=== PATIENT | male | born 1980 | race Caucasian/White ===

== ENCOUNTER 2025-04-25 10:00 | Inpatient (IN) | payer OTHER, SELFPAY ==
[2025-04-25] VITALS (28 sets, daily range): BP systolic 72–112; BP diastolic 35–75; PULSE 69–140; RESP 16–32; TEMP 36.7–39.4; O2SAT 96–100; BMI 21.6
--- NOTE | ~2025-04-25 | XR_ITS ---
Examination: XR chest 1V portable Clinical History: Pneumonia/consolidation on the left side Comparison: 04/25/2025 Technique: Portable AP Findings: Right neck central line. Heart size normal. Persistent airspace disease left lung. Developing airspace disease right lung base No sizable effusion or pneumothorax. No acute bony abnormality. IMPRESSION: 1. Persistent left and developing right pneumonia. Reviewed, dictated and finalized at location R.
--- NOTE | ~2025-04-25 | XR_ITS ---
EXAMINATION: XR chest 2V, 04/30/2025 15:47 CDT HISTORY: PNA, flank pain COMPARISON: No comparisons available. Technique: 2 views obtained. Findings: Bilateral infiltrates and small effusions. Left upper lobe infiltrate. COPD changes. No pneumothorax. Heart is normal size. Mediastinal and hilar contours are within normal limits. Bony thorax no acute abnormality. Impression: Bilateral pneumonia Reviewed, dictated and finalized at location P. Impression: Bilateral pneumonia
--- NOTE | ~2025-04-25 | XR_ITS ---
EXAMINATION: XR chest 2V, 04/25/2025 12:15 CDT HISTORY: Cough, FEVER, WEAKNESS COMPARISON: No comparisons available. Technique: 2 views obtained. Findings: Large left upper and lower lobe infiltrates. No pneumothorax. Heart is normal size. Mediastinal and hilar contours are within normal limits. Bony thorax no acute abnormality. Impression: Left-sided pneumonia Reviewed, dictated and finalized at location P. Impression: Left-sided pneumonia
--- NOTE | ~2025-04-25 | XR_ITS ---
Clinical history:Central line placement EXAM:X-ray chest Port-A-Cath/central TECHNIQUE:A single frontal AP upright portable image of the chest was obtained. Comparisons:Chest x-ray 2024 FINDINGS: There is a right-sided central venous catheter with its tip projecting over the right atrium. No pneumothorax. No pleural effusion. No free air under the diaphragm. Moderate-sized patchy opacities scattered throughout the left lung similar to the study from 04/25/2025 at 12:22 PM IMPRESSION: 1. Right-sided central venous catheters is tip projecting over the right atrium. 2. Moderate-sized patchy opacities scattered throughout the left lung similar to the study from 04/25/2025 at 12:22 PM. Reviewed, dictated and finalized at location Q. IMPRESSION: 1. Right-sided central venous catheters is tip projecting over the right atrium . 2. Moderate-sized patchy opacities scattered throughout the left lung similar t o the study from 04/25/2025 at 12:22 PM.
--- NOTE | ~2025-04-25 | CT_ITS ---
EXAMINATION: CT diagnostic chest wo flaquito, 04/25/2025 14:15 CDT HISTORY: pneumonia, septick shock COMPARISON: No comparisons available. TECHNIQUE: CT scan of the chest was performed without IV contrast. One or more of the following dose reduction techniques were used: automated exposure control, adjustment of the mA and/or kV according to patient size, use of iterative reconstruction technique. FINDINGS: No significant coronary calcification is present ([id number]) LUNGS: Clear without consolidation, effusion, or pneumothorax. HEART AND PERICARDIUM: Within normal limits. AORTA: Normal caliber aorta. ADENOPATHY/MEDIASTINUM: None. LIMITED VIEWS OF THE ABDOMEN: Within normal limits. OSSEOUS STRUCTURES: No acute osseous abnormality.No suspicious lesions. OVERLYING SOFT TISSUES: Unremarkable. THYROID: The thyroid is unremarkable. IMPRESSION: 1. No etiology identified to explain the patient's symptoms. Follow up suggested if symptoms persist. Reviewed, dictated and finalized at location P. IMPRESSION: 1. No etiology identified to explain the patient's symptoms. Follow up suggeste d if symptoms persist.
[2025-04-25] MEDS: SODIUM CHLORIDE 0.9% IV 1,000 ML 999 ML IV CONT ×3 (11:37→12:37)
[2025-04-25] MEDS: ACETAMINOPHEN 500 MG TABLET 1000 MG PO (11:37)
[2025-04-25] MEDS: SODIUM CHLORIDE 0.9% IV 100 ML 999 ML IV CONT (11:38)
[2025-04-25 11:39] LABS: Hematocrit 39.6 % (42.0-52.0); Hemoglobin 12.7 g/dL (14.0-18.0); Immature Granulocyte Percent A 4.5 % (0-0.5); Lymphocytes Absolute Auto 0.55 K/mm3 (0.9-3.2); Mean Corpuscular HGB Conc 32.1 g/dl (32-36); Mean Corpuscular Hemoglobin 26.7 pg (26-34); Mean Corpuscular Volume 83.4 fl (80-100); Nucleated Red Blood Cells Absolute Auto 0.000 K/mm3 (0.0-0.012); Nucleated Red Blood Cells Perc 0.0 % (0.0-0.2); Platelet Count Result 222 k/mm3 (150-375); Red Blood Count 4.75 M/mm3 (4.6-6.20); White Blood Count 11.3 K/mm3 (4.5-10.0)
[2025-04-25 11:49] LABS: INR 1.2; Partial Thromboplastin Time 34.4 Seconds (22.3-36.8); Prothrombin Time 14.9 Seconds (11.1-14.7)
[2025-04-25 11:52] LABS: Alanine Aminotransferase 26 U/L (6-50); Albumin Level 3.6 g/dL (3.5-5.1); Alkaline Phosphatase 99 U/L (38-126); Anion Gap 9 mmol/L (4-12); Aspartate Amino Transferase 20 U/L (17-59); Bilirubin,Total 0.7 mg/dL (0.2-1.3); Blood Urea Nitrogen 17 mg/dL (9-20); Calcium 8.3 mg/dL (8.4-10.2); Carbon Dioxide 28 mmol/L (22-30); Chloride 94 mmol/L (98-107); Estimated CRCL calculation 96 ml/min; Estimated Glomerular Filt Rate > 60; Glucose 122 mg/dL (65-110); Potassium 3.8 mmol/L (3.4-5.0); Sodium 131 mmol/L (137-145); Total Protein 7.4 g/dL (6.3-8.2)
--- NOTE | 2025-04-25 12:03 | ED.GENADULT ---
HPI - General Adult General Chief complaint: Fever Stated complaint: cough, fever, SOB Time Seen by Provider: 04/25/25 11:17 History of Present Illness HPI narrative: Patient is a 44-year-old male who presents ER with cough and fever. Ongoing over last 5 days. Has been trying to drink but is not having much urine output. No chest pain. He does have history of smoking. Febrile up to 102.8? F here. He is getting dizzy when he sits up. He feels extreme weakness and fatigue. No known sick contacts. Related Data Home Medications ?Medication ?Instructions ?Recorded ?Confirmed ?Last Taken ?Type No Home Medications 04/25/25 04/25/25 Unknown History Allergies Allergy/AdvReac Type Severity Reaction Status Date / Time aspirin Allergy Unknown Unknown Verified 04/25/25 14:58 Review of Systems Review of Systems: All systems reviewed & are unremarkable except as noted in HPI and below Constitutional: Constitutional: Reports no additional constitutional complaints Cardiovascular: Cardiovascular: Reports no additional cardiovascular complaints Respiratory: Respiratory: Reports no additional respiratory complaints Gastrointestinal: Gastrointestinal: Reports no additional gastrointestinal complaints Integumentary/Breasts: Skin/Breast: Reports system reviewed and no additional complaints, except as docu PMFSH Past Medical History Medical History (Updated 04/25/25 @ 18:53 by Conner Garcia MD) Depression with anxiety Family History Family History (Updated 09/10/16 @ 08:10 by DOCTOR UNKNOWN) Grandparent Family history of lung cancer, Onset Age: 53 Mother Family history of renal failure, Onset Age: 42 Social History Social History (Updated 04/25/25 @ 14:11 by Lazaro Campbell MD) Social History: Smokes 1 pack per 2 days, denies any alcohol use, denies marijuana but admits to IV drug abuse and uses IV meth. Denies cocaine or current fentanyl use although he has used fentanyl the past Smoking packs per day: 1 Smoking cigarettes per day: 20.0 Smoking status: Current every day smoker Second hand tobacco smoke exposure: No Alcohol intake: never Substance use type: methamphetamine Lack of Transportation: No Lack of Food: Sometimes True Current Housing: I Do Not Have Housing Concerned About Future Housing: YES Difficulty Paying Gas/Electric Bills: Decline to Answer Difficulty Paying for Meds: Decline to Answer Currently Unemployed: Decline to Answer Education: Decline to Answer Difficulty w/ Childcare or Family Care: Decline to Answer Spiritual care concerns: No Exam Narrative: GENERAL: Ill-appearing, thin, and in no acute distress. HEAD: Normocephalic, atraumatic. ENT: Mucous membranes moist. CHEST: Clear to auscultation. No respiratory distress. HEART: Tachycardic and regular.. Normal peripheral pulses. ABDOMEN: Soft, nontender, nondistended. EXTREMITIES: Normal range of motion. No edema. SKIN: Warm, dry, no rash. NEURO: Alert and oriented x3. PSYCH: Normal mood and affect. Course Course Emergency Course: Patient informed of results. He does acknowledge that he is an IV drug user. His blood pressure is trending down into the 70s. He consents to central line placement. Patient accepted to the ICU. He has been placed on ceftriaxone/azithromycin/vancomycin. Vital Signs Vital signs: Vital Signs Temperature 98.9 F 04/25/25 10:08 Pulse Rate 140 H 04/25/25 10:08 Respiratory Rate 24 H 04/25/25 10:08 Blood Pressure 102/67 04/25/25 10:08 Pulse Oximetry 100 04/25/25 10:08 Oxygen Delivery Room Air 04/25/25 10:08 Temperature 101.9 F H 04/25/25 18:00 Pulse Rate 110 H 04/25/25 18:25 Respiratory Rate 32 H 04/25/25 18:00 Blood Pressure 107/70 04/25/25 18:25 Pulse Oximetry 97 04/25/25 18:00 Oxygen Delivery Room Air 04/25/25 16:00 Procedures Central Line Placement Right IJ: Central Line Date: 04/25/25 Central Line Time: 13:41 Discussed w/ the patient/family/POA,the placement of a central venous catheter, including its clinical necessity/indication & associated potential risks, benifits and alternatives.: Yes The patient/family/POA understand(s) and acknowledge(s) the need to proceed with central venous catheter insertion as an important element of the patient's clinical management.: Yes Time Out Performed: Yes Patient Placed on Monitor/Pulse Ox: Yes Max. Sterile Barrier Technique: Caps, large sterile sheet and hand hygiene Central Line Prep: 2% chlorhexidine scrub and sterile drapes applied Technique: US-Guided Local Anesthetic: lidocaine 1% Amount of anesthesia used (mL): 3 Ultrasound Used for Placement: Yes Central Line Lumen Inserted: triple Post Procedure: sutured in place, good blood return, all ports aspirated, flushed, capped and sterile dressing applied Post Procedure X-Ray: tip of catheter in good position and no pneumothorax seen Patient Tolerated Procedure: well and no complications Complications: none Medical Decision Making Vital Signs Vital Signs: Vital Signs Temperature 98.9 F 04/25/25 10:08 Pulse Rate 140 H 04/25/25 10:08 Respiratory Rate 24 H 04/25/25 10:08 Blood Pressure 102/67 04/25/25 10:08 Pulse Oximetry 100 04/25/25 10:08 Oxygen Delivery Room Air 04/25/25 10:08 Temperature 101.9 F H 04/25/25 18:00 Pulse Rate 110 H 04/25/25 18:25 Respiratory Rate 32 H 04/25/25 18:00 Blood Pressure 107/70 04/25/25 18:25 Pulse Oximetry 97 04/25/25 18:00 Oxygen Delivery Room Air 04/25/25 16:00 Lab Data 04/25/25 18:18 04/25/25 18:18 Labs: Lab Results 04/25/25 04/25/25 Range/Units 11:29 11:42 WBC 11.3 H (4.5-10.0) K/mm3 RBC 4.75 (4.6-6.20) M/mm3 Hgb 12.7 L (14.0-18.0) g/dL Hct 39.6 L (42.0-52.0) % MCV 83.4 (80-100) fl MCH 26.7 (26-34) pg MCHC 32.1 (32-36) g/dl RDW 14.2 (11.5-14.5) % Plt Count 222 (150-375) k/mm3 MPV 9.6 (7.4-10.4) fl Immature Gran % (Auto) 4.5 H (0-0.5) % Neut % (Auto) 81.3 H (45.5-73.1) % Lymph % (Auto) 4.9 L (18.3-44.2) % Gates % (Auto) 8.4 (2.6-8.5) % Eos % (Auto) 0.1 (0-4.4) % Baso % (Auto) 0.8 (0.2-1.2) % Lymph # (Auto) 0.55 L (0.9-3.2) K/mm3 [place] # (Auto) 1.0 H (0.1-0.6) K/mm3 Eos # (Auto) 0.0 (0-0.3) K/mm3 Baso # (Auto) 0.1 (0.0-0.1) K/mm3 Abs Immat Gran (auto) 0.51 H (0.00-0.031) K/mm3 Absolute Neuts (auto) 9.2 H (1.3-6.7) K/mm3 Absolute Nucleated RBC 0.000 (0.0-0.012) K/mm3 Nucleated RBC % 0.0 (0.0-0.2) % PT 14.9 H (11.1-14.7) Seconds INR 1.2 APTT 34.4 (22.3-36.8) Seconds Sodium 131 L (137-145) mmol/L Potassium 3.8 (3.4-5.0) mmol/L Chloride 94 L (98-107) mmol/L Carbon Dioxide 28 (22-30) mmol/L Anion Gap 9 (4-12) mmol/L BUN 17 (9-20) mg/dL Creatinine 0.81 (0.7-1.3) mg/dL Estim Creat Clear Calc 96 ml/min Estimated GFR > 60 (59 - ) Glucose 122 H (65-110) mg/dL Lactic Acid 2.3 H (0.7-2.0) mmol/L Calcium 8.3 L (8.4-10.2) mg/dL Total Bilirubin 0.7 (0.2-1.3) mg/dL AST 20 (17-59) U/L ALT 26 (6-50) U/L Alkaline Phosphatase 99 (38-126) U/L C-Reactive Protein 30.0 H (<1.0) mg/dL Total Protein 7.4 (6.3-8.2) g/dL Albumin 3.6 (3.5-5.1) g/dL Urine Color Dark yellow (Yellow) Urine Appearance Cloudy H (Clear) Urine pH 5.5 (5.0-9.0) Ur Specific [place] 1.022 (1.001-1.035) Urine Protein 2+ H (Negative) mg/dL Urine Glucose (UA) Negative (Negative) mg/dL Urine Ketones Negative (Negative) mg/dL Ur Blood (Man) Negative (Negative) Urine Nitrate Negative (Negative) Urine Bilirubin Negative (Negative) Urine Urobilinogen 1.0 (<2.0) mg/dL Add Ur Microanalysis Reviewed Leukocyte Esterase Rfl Negative (Negative) SHANTEL/UL Urine RBC 0-2 (0-2) /hpf Urine WBC 0-5 (0-3) /hpf Ur Squamous Epith Cells Few (Few) /hpf Urine Bacteria None seen /hpf Urine Casts 6-10 Urine Opiates Screen Negative (Negative) Urine Methadone Screen Negative (Negative) Ur Barbiturates Screen Negative (Negative) Ur Phencyclidine Scrn Negative (Negative) Ur Amphetamine Screen Positive A (Negative) U Benzodiazepines Scrn Negative (Negative) Urine Cocaine Screen Negative (Negative) U Cannabinoids Screen Positive A (Negative) Influenza A (RT-PCR) Negative (Negative) Influenza B (RT-PCR) Negative (Negative) RSV (RT-PCR) Negative (Negative) SARS-CoV-2 RNA (RT-PCR) Negative (Negative) Critical Care Time Critical Care Time Critical Care Time: Yes Total Critical Care Time: 40 Discharge Plan Discharge Clinical Impression: Septic shock, Community acquired pneumonia, IV drug user Patient Disposition: Still a Patient Condition: Serious
[2025-04-25 12:09] LABS: Add Urine Microscopic? YES; Appearance Urine Cloudy (Clear); Glucose Urine UA Negative (Negative); Leukocyte Esterase Ur Negative LEU/UL (Negative); Need Manual Microscopic Reviewed; Nitrate Urine Negative (Negative); Specific Grav Ur 1.022 (1.001-1.035)
[2025-04-25 12:14] LABS: Influenza A QL RT-PCR Negative (Negative); Influenza B QL RT-PCR Negative (Negative); RSV RNA, RT-PCR Negative (Negative); SARS-CoV-2 RNA PCR Negative (Negative)
[2025-04-25 12:22] LABS: CRP 30.0 mg/dL (<1.0)
[2025-04-25] MEDS: cefTRIAXone 1 GM in SODIUM CHLORIDE 0.9% IV 50 ML 100 ML IVPB (12:37)
[2025-04-25] MEDS: AZITHROMYCIN IV 500 MG in SODIUM CHLORIDE 0.9% IV 250 ML IVPB (12:57)
--- NOTE | 2025-04-25 13:53 | WPDCNINT ---
Assessment and Plan Assessment and plan (1) Septic shock: Code(s): A41.9 - Sepsis, unspecified organism; R65.21 - Severe sepsis with septic shock Status: Acute Assessment and Plan: Septic shock secondary to community-acquired pneumonia in a person with IV drug use Admission to ICU IVF bolus followed by infusion Levophed infusion to maintain mean arterial pressure Blood cultures, sputum culture, mycoplasma IgM, urine pneumococcal antigen, urine Legionella antigen Empiric Rocephin azithromycin and vancomycin Check HIV and hepatitis screen Check CT chest without contrast If cultures remain positive will order additional workup including echocardiogram (2) Community acquired pneumonia: Code(s): J18.9 - Pneumonia, unspecified organism Status: Acute (3) IV drug user: Code(s): F19.90 - Other psychoactive substance use, unspecified, uncomplicated Status: Acute Assessment and Plan: See above Check urine drug screen Patient was counseled and encouraged to quit drug use Plan DVT prophylaxis -Lovenox Nutrition -diet ordered Code Status -patient wishes to be Full Code. He is and does not have any biological children. He request that his friend Aline be considered healthcare [employer] if he is unable to make decisions on his behalf. Case discussed with ED physician Dr. Garcia Total Critical Care Time - 35 minutes Due to a high probability of clinically significant, life threatening deterioration, the patient required my highest level of preparedness to intervene emergently and I personally spent this critical care time directly and personally managing the patient. This critical care time included obtaining a history; examining the patient; pulse oximetry; ordering and review of studies; arranging urgent treatment with development of a management plan; evaluation of patient's response to treatment; frequent reassessment; and discussions with other providers. It was exclusive of separately billable procedures and treating other patients and teaching time. 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 He also complained of feeling dizzy and lightheaded. He also complained of feeling f weak and fatigue. Complaint of chest pain on the left side with deep breathing and coughing. Denied any sick contacts. Denies any shortness of breath or loss of consciousness. Patient denies nausea vomiting, abdominal pain, diarrhea, headache or constipation. No hematuria or dysuria or frequency. All other systems were reviewed and were negative. He admits to IV drug use In ER patient was found to be febrile and and hypotensive Workup in the ER showed UA to be not suggestive UTI A viral PCR was negative Electrolytes were unremarkable except lactic acid elevated at 2.3 and CRP 30 WBC elevated at 11.3 Chest x-ray showed left sided pneumonia In ER patient was given IV fluid bolus 30 mL/kg despite the patient was hypotensive. Patient was started on vasopressor and a right IJ central venous catheter was placed. Review of Systems Review of Systems: All systems reviewed & are unremarkable except as noted in HPI and below (HPI) [facility] Past Medical History Medical History (Updated 04/25/25 @ 13:54 by Lazaro Campbell MD) Depression with anxiety Family History Family History (Updated 09/10/16 @ 08:10 by DOCTOR UNKNOWN) Grandparent Family history of lung cancer, Onset Age: 53 Mother Family history of renal failure, Onset Age: 42 Social History Social History (Updated 04/25/25 @ 14:11 by Lazaro Campbell MD) Social History: Smokes 1 pack per 2 days, denies any alcohol use, denies marijuana but admits to IV drug abuse and uses IV meth. Denies cocaine or current fentanyl use although he has used fentanyl the past Smoking status: Heavy tobacco smoker Second hand tobacco smoke exposure: No Alcohol intake: current Meds Home Medications and Allergies Home Medications ?Medication ?Instructions ?Recorded ?Confirmed ?Type No Home Medications 04/25/25 04/25/25 History Allergies Allergy/AdvReac Type Severity Reaction Status Date / Time aspirin Allergy Unknown Unknown Verified 04/25/25 10:12 Vital Signs Vital Signs - 24 hr 04/25/25 10:08 04/25/25 11:00 04/25/25 11:16 Temperature 37.2 C 39.3 C H Pulse Rate 140 H 124 H 116 H Respiratory Rate 24 H 20 30 H Blood Pressure 102/67 106/75 105/66 Pulse Oximetry 100 100 100 Oxygen Delivery Room Air Room Air 04/25/25 11:17 04/25/25 11:26 04/25/25 12:01 Temperature 39.4 C H Pulse Rate 115 H 108 H Respiratory Rate 30 H 23 H 29 H Blood Pressure 105/66 94/62 L Pulse Oximetry 100 96 99 Oxygen Delivery 04/25/25 12:07 04/25/25 12:28 04/25/25 12:31 Temperature 39.4 C H Pulse Rate 98 103 H Respiratory Rate 21 H 29 H Blood Pressure 82/57 L 88/55 L Pulse Oximetry 98 99 Oxygen Delivery 04/25/25 12:40 04/25/25 13:04 04/25/25 13:15 Temperature Pulse Rate 109 H 102 H 101 H Respiratory Rate 23 H 26 H 17 Blood Pressure 92/61 L 77/40 L 95/55 L Pulse Oximetry 100 98 98 Oxygen Delivery Exam Narrative: General: Frail male who appears sick and toxic and appears older than his age Lungs/Chest: Trachea central Clear BS B/L, left basilar crackles Cardiac: RRR. Tachycardia Normal S1 S2. No murmurs Circulation: Pedal pulses are intact and symmetrical. Abdomen: Normal bowel sounds.. Soft. NT. ND. Extremities: No clubbing, cyanosis or edema. Warm : De Jesus in place Neurologic: Follows commands. Moves all 4 extremities PERRL AO x3 Skin: No Rash, track pantoja in left antecubital area from IV drug use Results Labs 04/25/25 11:29 04/25/25 11:29 Labs: Impressions Chest X-Ray 04/25/25 12:27 Impression: Left-sided pneumonia Short CBC 04/25/25 Range/Units 11:29 WBC 11.3 H (4.5-10.0) K/mm3 Hgb 12.7 L (14.0-18.0) g/dL Hct 39.6 L (42.0-52.0) % Plt Count 222 (150-375) k/mm3 BMP 04/25/25 11:29 Sodium 131 L Potassium 3.8 Chloride 94 L Carbon Dioxide 28 BUN 17 Creatinine 0.81 Glucose 122 H Calcium 8.3 L Liver Function 04/25/25 Range/Units 11:29 Total Bilirubin 0.7 (0.2-1.3) mg/dL AST 20 (17-59) U/L ALT 26 (6-50) U/L Alkaline Phosphatase 99 (38-126) U/L Albumin 3.6 (3.5-5.1) g/dL Urine 04/25/25 Range/Units 11:42 Urine Color Dark yellow (Yellow) Urine Appearance Cloudy H (Clear) Urine pH 5.5 (5.0-9.0) Ur Specific [place] 1.022 (1.001-1.035) Urine Protein 2+ H (Negative) mg/dL Urine Glucose (UA) Negative (Negative) mg/dL Quality VTE Prophylaxis VTE prophylaxis: pharmacologic ordered Hospitalist MIPS Advance Care Plan I have confirmed that the patient's Advanced Care Plan is present, code status is documented, or surrogate decision maker is listed in patient medical record.: Yes Medication Reconciliation I have utilized all available resources to obtain, update and review the patients current medications (includes all prescriptions, OTC, herbals, cannabis, and nutritional supplements).: Yes
[2025-04-25] MEDS: NOREPINEPHRINE 8 MG/D5W 250 ML 8 MG/250 ML BAG 9.38 MG IV CONT (14:02)
[2025-04-25] MEDS: CENTRAL LINE FLUSH 10 ML IV PUSH ×2 (14:08→20:17)
[2025-04-25] MEDS: SODIUM CHLORIDE 0.9% IV 1,000 ML 125 ML IV CONT (14:08)
[2025-04-25] MEDS: VANCOMYCIN 1,750 MG/NS 500 ML 1,750 MG/500 ML BAG 250 MG IVPB (14:08)
--- NOTE | 2025-04-25 14:42 | PC.NURSE ---
This patient, Wyatt Mcclelland, was admitted to Intensive Care Unit-6. Patient/family oriented to hospital policies and general routines including ID bracelet, bed and alarms, visiting hours, pain management, procedures, bathroom and other care routines, personal items, smoking policy, room service/diet, and visiting hours. Information on how to activate the Rapid Response Team has been discussed. Patient/Family are encouraged to report perceived risks to care and to ask questions if they do not understand what they are told or what they should do.
[2025-04-25 14:53] LABS: Cannabinoid Screen Urine Positive (Negative)
[2025-04-25] MEDS: LACTATED RINGERS 1,000 ML 100 ML IV CONT (15:10)
--- NOTE | 2025-04-25 15:11 | P.HP_ITS ---
H&P: HPI History of Present Illness Date/Time: 04/25/25 15:11 Chief Complaint: Fever and cough Narrative: 44-year-old male with past medical history of IV methamphetamine use, current smoker presents to the ED on 04/25/2025 with complaints of 5 day history of cough and fever. The patient has been trying to keep hydrated but has noted decreased urine output. Further endorses feeling of weakness and fatigue. His cough is frequent but nonproductive. Denies chest pain or recent sick contacts. No shortness of breath or loss of consciousness. Denies nausea, vomiting, abdominal pain, diarrhea, headache. Patient states his fever was up to 106? F 3 days prior to arrival. In the ED patient was getting dizzy when sitting up. He does admit to being an IV drug user of methamphetamine. Patient states he st opped using 1 month ago after using for 7 years. Initial vital signs BP 102/67, heart rate 140, respirations 24, temperature 98.9? F, O2 sat 100% on room air Lab significant for leukocytosis, hyponatremia, lactic acid 2.3, CRP 30, UA no signs of infection, UDS positive for amphetamines and cannabinoids. Hepatitis panel negative. Viral panel negative. Chest x-ray reveals left-sided pneumonia. Chest CT shows large left upper lobe bronchial pneumonia with reactive mediastinal lymphadenopathy Patient with continued hypotension while in the ED. central line placed in the right IJ for pressors. Review of Systems Review of Systems: All systems reviewed & are unremarkable except as noted in HPI and below PMFSH Past Medical History Medical History (Updated 04/26/25 @ 01:39 by Rosalba Lim APRN) Depression with anxiety Family History Family History (Updated 09/10/16 @ 08:10 by DOCTOR UNKNOWN) Grandparent Family history of lung cancer, Onset Age: 53 Mother Family history of renal failure, Onset Age: 42 Social History Social History (Updated 04/25/25 @ 14:11 by Lazaro Campbell MD) Social History: Smokes 1 pack per 2 days, denies any alcohol use, denies marijuana but admits to IV drug abuse and uses IV meth. Denies cocaine or current fentanyl use although he has used fentanyl the past Smoking packs per day: 1 Smoking cigarettes per day: 20.0 Smoking status: Current every day smoker Second hand tobacco smoke exposure: No Alcohol intake: never Substance use type: methamphetamine Lack of Transportation: No Lack of Food: Sometimes True Current Housing: I Do Not Have Housing Concerned About Future Housing: YES Difficulty Paying Gas/Electric Bills: Decline to Answer Difficulty Paying for Meds: Decline to Answer Currently Unemployed: Decline to Answer Education: Decline to Answer Difficulty w/ Childcare or Family Care: Decline to Answer Spiritual care concerns: No Meds Home Medications and Allergies Home Medications ?Medication ?Instructions ?Recorded ?Confirmed ?Type No Home Medications 04/25/25 04/25/25 H istory Allergies Allergy/AdvReac Type Severity Reaction Status Date / Time aspirin Allergy Unknown Unknown Verified 04/25/25 14:58 Vital Signs Vital Signs - 24 hr 04/25/25 10:08 04/25/25 11:00 04/25/25 11:16 Temperature 98.9 F 102.8 F H Pulse Rate 140 H 124 H 116 H Respiratory Rate 24 H 20 30 H Blood Pressure 102/67 106/75 105/66 Pulse Oximetry 100 100 100 Oxygen Delivery Room Air Room Air 04/25/25 11:17 04/25/25 11:26 04/25/25 12:01 Temperature 102.9 F H Pulse Rate 115 H 108 H Respiratory Rate 30 H 23 H 29 H Blood Pressure 105/66 94/62 L Pulse Oximetry 100 96 99 Oxygen Delivery 04/25/25 12:07 04/25/25 12:28 04/25/25 12:31 Temperature 102.9 F H Pulse Rate 98 103 H Respiratory Rate 21 H 29 H Blood Pressure 82/57 L 88/55 L Pulse Oximetry 98 99 Oxygen Delivery 04/25/25 12:40 04/25/25 13:04 04/25/25 13:15 Temperature Pulse Rate 109 H 102 H 101 H Respiratory Rate 23 H 26 H 17 Blood Pressure 92/61 L 77/40 L 95/55 L Pulse Oximetry 100 98 98 Oxygen Delivery 04/25/25 13:20 04/25/25 13:41 04/25/25 14:01 Temperature Pulse Rate 104 H 103 H 97 Respiratory Rate 21 H 18 21 H Blood Pressure 95/55 L 85/53 L 93/61 L Pulse Oximetry 100 98 98 Oxygen Delivery 04/25/25 14:02 04/25/25 14:35 04/25/25 15:00 Temperature 98.9 F 98.5 F Pulse Rate 90 91 85 Respiratory Rate 23 H 26 H Blood Pressure 93/61 L 101/75 91/63 L Pulse Oximetry 98 97 Oxygen Delivery Exam Narrative: GENERAL: toxic appearing, frail. HEAD: Normocephalic, atraumatic. EYES: PERRLA. Conjunctivae clear. NOSE: Normal no drainage. THROAT: Pharynx clear, no exudate. NECK: Trachea midline. No adenopathy, no masses. RESPIRATORY: Airway patent, respirations nonlabored. Left sided crackles CARDIOVASCULAR: Regular rate and rhythm . GASTROINTESTINAL: Abdomen is soft and nontender. No organomegaly. Bowel sounds normal in all quadrants. GENITOURINARY: Defer MUSCULOSKELETAL: Moves all extremities. No gross deformities. No calf tenderness. SKIN: Warm, dry, normal color. Track pantoja noted to left AC NEURO: A&O X4. Speech clear. Drowsy PSYCHIATRIC: Normal interaction H&P: Results Labs Labs: Short CBC 04/25/25 Range/Units 11:29 WBC 11.3 H (4.5-10.0) K/mm3 Hgb 12.7 L (14.0-18.0) g/dL Hct 39.6 L (42.0-52.0) % Plt Count 222 (150-375) k/mm3 BMP 04/25/25 11:29 Sodium 131 L Potassium 3.8 Chloride 94 L Carbon Dioxide 28 BUN 17 Creatinine 0.81 Glucose 122 H Calcium 8.3 L Liver Function 04/25/25 Range/Units 11:29 Total Bilirubin 0.7 (0.2-1.3) mg/dL AST 20 (17-59) U/L ALT 26 (6-50) U/L Alkaline Phosphatase 99 (38-126) U/L Albumin 3.6 (3.5-5.1) g/dL Urine 04/25/25 Range/Units 11:42 Urine Color Dark yellow (Yellow) Urine Appearance Cloudy H (Clear) Urine pH 5.5 (5.0-9.0) Ur Specific [place] 1.022 (1.001-1.035) Urine Protein 2+ H (Negative) mg/dL Urine Glucose (UA) Negative (Negative) mg/dL Assessment and Plan Assessment and plan (1) Septic shock: Code(s): A41.9 - Sepsis, unspecified organism; R65.21 - Severe sepsis with septic shock Status: Acute Assessment and Plan: Presents with cough and fever x5 days. Chest x-ray with left-sided pneumonia. Chest CT shows large left upper lobe bronchial pneumonia with reactive mediastinal lymphadenopathy - meets SIRS criteria: Heart rate greater than 90, respirations greater than 20, WBC greater than 12 -community-acquired pneumonia - lactic acid: 2.3--> 1.3 -3 L bolus -LR at 100 mL/hour - suspected source: Left upper lobe pneumonia - started on azithromycin, ceftriaxone, vancomycin - blood cultures drawn on 04/25 - UA: No signs of infection -trend CBC, CMP, Lactate, INR -requiring pressor support of norepinephrine due to ongoing hypotension despite fluid resuscitation -sputum culture, mycoplasma IgM, urine pneumococcal antigen Legionella pending -acetaminophen p.r.n. -guaifenesin Q 12 (2) IV drug user: Code(s): F19.90 - Other psychoactive substance use, unspecified, uncomplicated Status: Acute Assessment and Plan: IV drug user for about 7 years. Patient states he used methamphetamine IV but quit about 1 month ago. UDS positive for methamphetamines and cannabinoids. Co unseling and encouragement provided. -hepatitis screen negative -check HIV Plan Diet: Regular GI prophylaxis: Protonix DVT prophylaxis: Lovenox lines/drains: Central line to right IJ Fluids: 3 L bolus given-LR at 100 mL per hour Code status: Full Quality VTE Prophylaxis VTE prophylaxis: pharmacologic ordered Hospitalist [facility] Advance Care Plan I have confirmed that the patient's Advanced Care Plan is present, code status is documented, or surrogate decision maker is listed in patient medical record.: Yes Medication Reconciliation I have utilized all available resources to obtain, update and review the patients current medications (includes all prescriptions, OTC, herbals, cannabis, and nutritional supplements).: Yes
[2025-04-25 15:36] LABS: Hepatitis B Surface Antigen Negative (Negative)
[2025-04-25 15:41] LABS: HAV RESULT Negative (Negative); HIV 1/2 Ab P24 Ag Result Negative (Negative); Hepatitis B Core IgM Result Negative (Negative)
[2025-04-25 15:59] LABS: MRSA (PCR) NOT DETECTED (NOT DETECTE)
[2025-04-25] MEDS: guaiFENesin 600 MG/DEXTROMETHORPHAN 30 MG SR TAB 12 HR 1 TAB PO (17:24)
[2025-04-25] MEDS: ACETAMINOPHEN 325 MG TABLET 650 MG PO (17:24)
[2025-04-25] MEDS: BENZOCAINE/MENTHOL (*BKC) 18 EA LOZENGE 1 LOZENGE PO ×2 (18:00→20:34)
[2025-04-25 18:28] LABS: Hematocrit 33.1 % (42.0-52.0); Hemoglobin 10.7 g/dL (14.0-18.0); Immature Granulocyte Percent A 5.0 % (0-0.5); Lymphocytes Absolute Auto 0.92 K/mm3 (0.9-3.2); Mean Corpuscular HGB Conc 32.3 g/dl (32-36); Mean Corpuscular Hemoglobin 26.8 pg (26-34); Mean Corpuscular Volume 82.8 fl (80-100); Nucleated Red Blood Cells Absolute Auto 0.000 K/mm3 (0.0-0.012); Nucleated Red Blood Cells Perc 0.0 % (0.0-0.2); Platelet Count Result 158 k/mm3 (150-375); Red Blood Count 4.00 M/mm3 (4.6-6.20); White Blood Count 12.8 K/mm3 (4.5-10.0)
[2025-04-25 18:43] LABS: Alanine Aminotransferase 22 U/L (6-50); Albumin Level 2.7 g/dL (3.5-5.1); Alkaline Phosphatase 81 U/L (38-126); Anion Gap 4 mmol/L (4-12); Aspartate Amino Transferase 18 U/L (17-59); Bilirubin,Total 0.2 mg/dL (0.2-1.3); Blood Urea Nitrogen 15 mg/dL (9-20); Calcium 7.3 mg/dL (8.4-10.2); Carbon Dioxide 24 mmol/L (22-30); Chloride 105 mmol/L (98-107); Estimated CRCL calculation 119 ml/min; Estimated Glomerular Filt Rate > 60; Glucose 128 mg/dL (65-110); Magnesium 1.8 mg/dL (1.6-2.3); Potassium 3.9 mmol/L (3.4-5.0); Sodium 133 mmol/L (137-145); Total Protein 5.7 g/dL (6.3-8.2)
[2025-04-25] MEDS: HYDROcodone/acetaminophen (*CRX) 5-325 MG TABLET 1 TAB PO (20:37)
[2025-04-26] VITALS (33 sets, daily range): BP systolic 73–135; BP diastolic 51–92; PULSE 51–101; RESP 15–31; TEMP 36.5–37.7; O2SAT 94–100
--- NOTE | 2025-04-26 | ECHO_ITS ---
Patient Info Name: Wyatt Mcclelland Age: 44 years : 1980 Gender: Male Ht: 70 in Wt: 157 lbs BSA: 1.88 m2 BP: 106 / 78 mmHg Technical Quality: Good Exam Date: 04/26/2025 11:06 AM Patient Status: I Admit Date: 04/26/2025 Exam Type: CA echo doppler color flow Complete two-dimensional, color flow and Doppler transthoracic echocardiogram is performed. Staff Referring Physician: Rosalba Lim Academic Advising Director: Venkata Sánchez III Attending Provider: Amarilys Godwin Summary 1. Patient stated he wanted tech to inform doctors that patient was IV drug user. 2. Complete two-dimensional, color flow and Doppler transthoracic echocardiogram is performed. 3. Normal LV size and wall thickness. Normal LV systolic and diastolic function, ejection fraction about 60-65%. Normal RV size and systolic function. Mild biatrial enlargement. No significant valvular abnormality. Left Ventricle Left ventricular chamber dimension is normal. Left ventricular systolic function is normal, estimated at 60-65. The left ventricular diastolic function is normal. Right Ventricle Right ventricular chamber dimension is normal. Right ventricular systolic function is normal. Left Atria Left atrial chamber dimension is mildly enlarged. Right Atria Right atrial chamber dimension is mildly enlarged. Aortic Valve The aortic valve is normal. There is no aortic valve stenosis. Pulmonic Valve The pulmonic valve is normal. Mitral Valve The mitral valve has normal leaflets. There is trace mitral valve regurgitation. Tricuspid Valve The tricuspid valve leaflets are normal. There is trace tricuspid valve regurgitation. Pericardium/Pleural The pericardium appears normal. Inferior Vena Cava Dilated inferior vena cava with <50% collapse upon inspiration consistent with elevated right atrial pressure, 10 mmHg. Aorta The aortic root size at the sinus of Valsalva is normal. Left Ventricular Outflow Tract Name Value Normal LVOT 2D LVOT Diameter 2.4 cm LVOT Doppler LVOT Peak Velocity 101 cm/s LVOT Peak Gradient 4 mmHg LVOT Mean Gradient 2 mmHg LVOT VTI 20 cm LVOT VTI/AV VTI Ratio 0.9 LVOT Stroke Volume 92 ml LVOT CO 5.8 l/min LVOT CI 3.1 l/min/m2 Pulmonic Valve Name Value Normal PV Doppler PV Peak Velocity 76 cm/s PV Peak Gradient 2 mmHg PV Mean Gradient 1 mmHg Mitral Valve Name Value Normal MV Doppler MV Peak Gradient 4 mmHg MV Mean Gradient 1 mmHg MV Area (Cont Eq VTI) 3.7 cm2 MV Diastolic Function MV E Peak Velocity 107 cm/s MV A Peak Velocity 63 cm/s MV E/A 1.7 MV Decel Time (PW) 186 ms MV Annular TDI MV E/e' (Septal) 8.2 MV E/e' (Lateral) 7.3 MV E/e' (Average) 7.7 Tricuspid Valve Name Value Normal TV Regurgitation Doppler TR Peak Velocity 227 cm/s TR Peak Gradient 21 mmHg Estimated PAP/RSVP RA Pressure 10 mmHg <=5 PA Systolic Pressure 31 mmHg <36 RV Systolic Pressure 31 mmHg <36 TV Annular TDI TV Lateral Tracy s' Velocity 13.6 cm/s >=9.5 Aortic Valve Name Value Normal AV Doppler AV Peak Velocity 119 cm/s AV Peak Gradient 6 mmHg AV Mean Gradient 3 mmHg AV VTI 23 cm AV Area (Cont Eq VTI) 4.1 cm2 >=3.0 AV Area (Cont Eq Rashaun) 3.9 cm2 AV DI (Rashaun) 0.85 AV Regurgitation 2D LVOT Area 4.6 cm2 Ventricles Name Value Normal LV Dimensions 2D/MM IVS Diastolic Thickness (2D) 0.8 cm 0.6-1.0 LVID Diastole (2D) 4.6 cm 4.2-5.8 LVIW Diastolic Thickness (2D) 0.9 cm 0.6-1.0 LVID Systole (2D) 3.1 cm 2.5-4.0 LVOT Diameter 2.4 cm LV Mass (2D Cubed) 132.21 g 88.00-224.00 LV Mass Index (2D Cubed) 70 g/m2 49-115 Relative Wall Thickness (2D) 0.41 <=0.42 LV Fractional Shortening/Ejection Fraction 2D/MM LV Fractional Shortening (2D) 32 % 25-43 LV EF (2D Teichholz) 61 % LV Diastolic Volume (4C MOD) 89 ml LV EF (4C MOD) 61 % LV Diastolic Volume (2C MOD) 109 ml LV EF (2C MOD) 65 % LV Diastolic Volume (BP MOD) 100 ml 62-150 LV Diastolic Volume Index (BP MOD) 53 ml/m2 34-74 LV Systolic Volume (BP MOD) 37 ml 21-61 LV Systolic Volume Index (BP MOD) 20 ml/m2 11-31 LV EF (BP MOD) 63 % 52-72 LV Diastolic Length (4C) 7.6 cm LV Systolic Length (4C) 6.1 cm LV Stroke Volume (4C MOD) 54 ml Atria Name Value Normal LA Dimensions LA Volume (4C A-L) 64 ml LA Volume (BP A-L) 64 ml RA Dimensions RA Systolic Major Surprise Length (4C) 5.8 cm 2.1-2.7 RA Area (4C) 21.4 cm2 <=18.0 Report Signatures
[2025-04-26] MEDS: LACTATED RINGERS 1,000 ML 100 ML IV CONT ×3 (00:24→20:42)
[2025-04-26] MEDS: HYDROcodone/acetaminophen (*CRX) 5-325 MG TABLET 1 TAB PO ×4 (01:06→20:18)
[2025-04-26] MEDS: VANCOMYCIN 1,250 MG/NS 250 ML 1,250 MG/250 ML BAG 166.67 MG IVPB ×2 (01:13→14:04)
[2025-04-26] MEDS: CENTRAL LINE FLUSH 10 ML IV PUSH ×3 (05:54→20:19)
[2025-04-26 05:57] LABS: Hematocrit 32.4 % (42.0-52.0); Hemoglobin 10.4 g/dL (14.0-18.0); Immature Granulocyte Percent A 7.9 % (0-0.5); Lymphocytes Absolute Auto 1.66 K/mm3 (0.9-3.2); Mean Corpuscular HGB Conc 32.1 g/dl (32-36); Mean Corpuscular Hemoglobin 27.1 pg (26-34); Mean Corpuscular Volume 84.4 fl (80-100); Nucleated Red Blood Cells Absolute Auto 0.000 K/mm3 (0.0-0.012); Nucleated Red Blood Cells Perc 0.0 % (0.0-0.2); Platelet Count Result 232 k/mm3 (150-375); Red Blood Count 3.84 M/mm3 (4.6-6.20); White Blood Count 12.9 K/mm3 (4.5-10.0)
[2025-04-26 06:18] LABS: Magnesium 2.1 mg/dL (1.6-2.3)
[2025-04-26 08:03] LABS: Alanine Aminotransferase 15 U/L (6-50); Albumin Level 2.5 g/dL (3.5-5.1); Alkaline Phosphatase 86 U/L (38-126); Anion Gap 6 mmol/L (4-12); Aspartate Amino Transferase 15 U/L (17-59); Bilirubin,Total 0.2 mg/dL (0.2-1.3); Blood Urea Nitrogen 12 mg/dL (9-20); Calcium 7.3 mg/dL (8.4-10.2); Carbon Dioxide 25 mmol/L (22-30); Chloride 105 mmol/L (98-107); Estimated CRCL calculation 138 ml/min; Estimated Glomerular Filt Rate > 60; Glucose 120 mg/dL (65-110); Potassium 3.4 mmol/L (3.4-5.0); Sodium 136 mmol/L (137-145); Total Protein 5.6 g/dL (6.3-8.2)
[2025-04-26] MEDS: cefTRIAXone 2 GM in SODIUM CHLORIDE 0.9% IV 50 ML 100 ML IVPB (08:37)
[2025-04-26] MEDS: PANTOPRAZOLE 40 MG TABLET PO (08:37)
[2025-04-26] MEDS: ENOXAPARIN 40 MG/0.4 ML SYRINGE SUB-Q (08:37)
[2025-04-26] MEDS: BENZONATATE 100 MG CAPSULE 200 MG PO ×3 (08:37→17:25)
[2025-04-26] MEDS: guaiFENesin 600 MG/DEXTROMETHORPHAN 30 MG SR TAB 12 HR 1 TAB PO ×2 (08:37→20:18)
[2025-04-26] MEDS: POTASSIUM CHLORIDE 20 MEQ ER TABLET 40 MEQ PO (09:15)
[2025-04-26] MEDS: CALCIUM CARBONATE (TUMS) 500 MG (200 MG ELEMENTAL) PO (10:41)
--- NOTE | 2025-04-26 12:13 | P.PNINT_ITS ---
Progress Note: A&P Assessment and Plan (1) Septic shock: Code(s): A41.9 - Sepsis, unspecified organism; R65.21 - Severe sepsis with septic shock Status: Acute Assessment and Plan: Septic shock secondary to community-acquired pneumonia in a person with IV drug use Admission to ICU IVF bolus followed by infusion Levophed infusion to maintain mean arterial pressure Blood cultures, sputum culture, mycoplasma IgM, urine pneumococcal antigen, urine Legionella antigen 04/26: On discontinue ceftriaxone, and start cefepime given significant consolidation/infiltrates, high risk for MDR given homeless situation, IV drug abuse. Continue with azithromycin and vanc (started on 04/25) HIV and hepatitis screen are negative -will order echocardiogram given patient is febrile with a T-max of 101.9? 04/25/2025: CT scan of the chest Large left upper lobe bronchopneumonia with reactive mediastinal lymphadenopathy. Follow-up is recommended to assess. (2) Community acquired pneumonia: Qualifiers: Laterality: left Lung location: upper lobe of lung Qualified Code(s): J18.9 - Pneumonia, unspecified organism Code(s): J18.9 - Pneumonia, unspecified organism Status: Acute Assessment and Plan: Community-acquired pneumonia with high risk for MDR -antibiotics as above (3) IV drug user: Code(s): F19.90 - Other psychoactive substance use, unspecified, uncomplicated Status: Acute Assessment and Plan: Urine drug screen was positive for methamphetamines and cannabinoids -patient states he quit methamphetamines 1 month ago. -methamphetamine in the urine is detected up until 3-5 days after the last use/administration Patient was counseled and encouraged to quit drug use Plan DVT prophylaxis -Lovenox Nutrition -regular diet Code Status -patient wishes to be Full Code. He is and does not have any biological children. He request that his friend Aline be considered healthcare power real estate associate attorney if he is unable to make decisions on his behalf. Total Critical Care Time - 32 minutes Due to a high probability of clinically significant, life threatening deterioration, the patient required my highest level of preparedness to intervene emergently and I personally spent this critical care time directly and personally managing the patient. This critical care time included obtaining a history; examining the patient; pulse oximetry; ordering and review of studies; arranging urgent treatment with development of a management plan; evaluation of patient's response to treatment; frequent reassessment; and discussions with other providers. It was exclusive of separately billable procedures and treating other patients and teaching time. Please see Assessment and Plan section and the rest of the note for further information on patient assessment and treatment This dictation may have been done utilizing a voice recognition system. Attempts have been made to correct errors. However, there may be uncorrected grammatical, spelling, and recognitions errors present. Subjective Date/time seen: 04/26/25 12:13 Interval history: Reason for consult: Septic shock, pneumonia, IV drug use 04/25/2023: Patient seen and examined the ICU, is awake, alert, complains of cough. Remains on Levophed. IV fluids. Patient has adequate urine output, febrile with T-max of 101.9. Denies any abdominal pain, nausea, vomiting at this time. Patient denies chest pain. Tolerating p.o. diet Review of Systems Review of Systems: All systems reviewed & are unremarkable except as noted in HPI and below (HPI) Exam Narrative: General: Frail male who appears sick and toxic and appears older than his age HEENT: Sclera is clear, pupils equal and reactive, moist oral mucosa Lungs/Chest: Trachea central Clear BS B/L, left basilar crackles, no wheezing Cardiac: Regular rate and rhythm Normal S1 S2. No murmurs Circulation: Pedal pulses are intact and symmetrical. Abdomen: Normal bowel sounds. Soft. NT. ND. Extremities: No clubbing, cyanosis or edema. Warm : De Jesus in place Neurologic: Answers to questions appropriately Follows commands. Moves all 4 extremities alert and oriented x3 Skin: No Rash, track pantoja in left antecubital area from IV drug use Objective Data Vital Signs Vital Signs: Vital Signs - 24 hr 04/25/25 12:28 04/25/25 12:31 04/25/25 12:40 Temperature Pulse Rate 98 103 H 109 H Respiratory Rate 21 H 29 H 23 H Blood Pressure 82/57 L 88/55 L 92/61 L Pulse Oximetry 98 99 100 Oxygen Delivery 04/25/25 13:04 04/25/25 13:15 04/25/25 13:20 Temperature Pulse Rate 102 H 101 H 104 H Respiratory Rate 26 H 17 21 H Blood Pressure 77/40 L 95/55 L 95/55 L Pulse Oximetry 98 98 100 Oxygen Delivery 04/25/25 13:41 04/25/25 14:01 04/25/25 14:02 Temperature Pulse Rate 103 H 97 90 Respiratory Rate 18 21 H Blood Pressure 85/53 L 93/61 L 93/61 L Pulse Oximetry 98 98 Oxygen Delivery 04/25/25 14:35 04/25/25 15:00 04/25/25 15:00 Temperature 98.9 F 98.5 F Pulse Rate 91 85 85 Respiratory Rate 23 H 26 H Blood Pressure 101/75 91/63 L 100/64 Pulse Oximetry 98 97 Oxygen Delivery 04/25/25 16:00 04/25/25 16:00 04/25/25 16:00 Temperature 98.7 F Pulse Rate 81 79 Respiratory Rate 27 H Blood Pressure 96/65 L Pulse Oximetry 100 97 Oxygen Delivery Room Air 04/25/25 16:00 04/25/25 17:00 04/25/25 17:45 Temperature 98.0 F Pulse Rate 75 96 84 Respiratory Rate 26 H Blood Pressure 96/65 L 96/35 L 112/67 Pulse Oximetry 97 Oxygen Delivery 04/25/25 18:00 04/25/25 18:00 04/25/25 18:25 Temperature 101.9 F H Pulse Rate 104 H 102 H 110 H Respiratory Rate 32 H Blood Pressure 108/64 107/70 Pulse Oximetry 97 Oxygen Delivery 04/25/25 19:00 04/25/25 20:00 04/25/25 20:00 Temperature 102.3 F H Pulse Rate 118 H 100 Respiratory Rate 22 H Blood Pressure 100/55 L 91/58 L Pulse Oximetry 97 Oxygen Delivery Room Air 04/25/25 20:00 04/25/25 20:00 04/25/25 21:00 Temperature 99.9 F H Pulse Rate 98 98 91 Respiratory Rate 24 H 24 H Blood Pressure 90/70 L 90/61 L Pulse Oximetry 96 96 Oxygen Delivery 04/25/25 22:00 04/25/25 22:00 04/25/25 22:00 Temperature 100 F H Pulse Rate 71 73 72 Respiratory Rate 16 Blood Pressure 75/54 L 72/54 L Pulse Oximetry 97 Oxygen Delivery 04/25/25 23:00 04/26/25 00:00 04/26/25 00:00 Temperature Pulse Rate 69 75 79 Respiratory Rate 18 Blood Pressure 90/60 L 73/51 L Pulse Oximetry 99 Oxygen Delivery 04/26/25 00:00 04/26/25 00:00 04/26/25 01:00 Temperature 100 F H Pulse Rate 73 81 Respiratory Rate 16 28 H Blood Pressure 76/51 L 94/62 L Pulse Oximetry 99 96 Oxygen Delivery Room Air 04/26/25 02:00 04/26/25 02:00 04/26/25 02:00 Temperature 99 F Pulse Rate 81 77 77 Respiratory Rate 26 H Blood Pressure 94/62 L 94/62 L Pulse Oximetry 97 Oxygen Delivery 04/26/25 03:00 04/26/25 04:00 04/26/25 04:00 Temperature Pulse Rate 76 70 Respiratory Rate 21 H Blood Pressure 95/64 L 90/62 L Pulse Oximetry 96 Oxygen Delivery Room Air 04/26/25 04:00 04/26/25 04:00 04/26/25 05:00 Temperature 99 F Pulse Rate 76 76 70 Respiratory Rate 31 H 20 Blood Pressure 109/74 102/63 Pulse Oximetry 95 97 Oxygen Delivery 04/26/25 06:00 04/26/25 06:00 04/26/25 06:00 Temperature 99.4 F Pulse Rate 55 L 55 L 54 L Respiratory Rate 17 Blood Pressure 100/80 100/80 Pulse Oximetry 98 Oxygen Delivery 04/26/25 07:00 04/26/25 08:00 04/26/25 08:00 Temperature 98.0 F Pulse Rate 60 61 60 Respiratory Rate 20 23 H Blood Pressure 100/75 129/78 129/78 Pulse Oximetry 99 100 Oxygen Delivery 04/26/25 08:00 04/26/25 08:00 04/26/25 08:43 Temperature Pulse Rate 60 77 Respiratory Rate Blood Pressure 106/78 Pulse Oximetry 100 Oxygen Delivery Room Air 04/26/25 09:00 04/26/25 10:00 04/26/25 10:00 Temperature 97.7 F Pulse Rate 63 68 68 Respiratory Rate 23 H 18 Blood Pressure 116/81 86/55 L Pulse Oximetry 100 99 Oxygen Delivery 04/26/25 10:45 04/26/25 11:00 Temperature Pulse Rate 80 63 Respiratory Rate 24 H Blood Pressure 114/75 109/82 Pulse Oximetry 95 Oxygen Delivery Intake/Output Intake/Output: Intake & Output 04/23/25 04/24/25 04/25/25 04/26/25 23:59 23:59 23:59 23:59 Intake Total 4086.5 2341.8 Output Total 1050 700 Balance 3036.5 1641.8 Meds/Results Medications: Active Medications Generic Name Dose Route Start Last Admin Trade Name Freq PRN Reason Stop Dose Admin Acetaminophen 650 mg 04/25/25 13:44 04/25/25 17:24 Acetaminophen 325 Mg Tablet PO 650 mg Q4H PRN Administration Mild Pain (1-3) or Fever Hydrocodone Bitart/Acetaminophen 1 tab 04/25/25 13:44 04/26/25 08:37 Hydrocodone/Acetaminophen (*Crx) 5-325 Mg Tablet PO 1 tab Q4H PRN Administration Pain Rated 4-6 Benzocaine 1 lozenge 04/25/25 17:27 04/25/25 20:34 Benzocaine/Menthol (*Bkc) 18 Ea Lozenge PO 1 lozenge PRN PRN Administration Sore Throat Benzonatate 200 mg 04/26/25 09:00 04/26/25 08:37 Benzonatate 100 Mg Capsule PO 200 mg TID NUNU Administration Calcium Carbonate 200 mg 04/26/25 10:34 04/26/25 10:41 Calcium Carbonate (Tums) 500 Mg (200 Mg Elemental) PO 200 mg Q6H PRN Administration Indigestion Enoxaparin Sodium 40 mg 04/26/25 09:00 04/26/25 08:37 Enoxaparin 40 Mg/0.4 Ml Syringe SUB-Q 40 mg DAILY NUNU Administration Guaifenesin/Dextromethorphan 1 tab 04/25/25 17:20 04/26/25 08:37 Guaifenesin 600 Mg/Dextromethorphan 30 Mg Sr Tab 12 Hr PO 1 tab Q12HR NUNU Administration Azithromycin 500 mg/ Sodium 250 mls @ 250 mls/hr 04/26/25 14:00 Chloride IVPB 04/29/25 14:59 Q24H NUNU Vancomycin HCl 1,250 mg in 250 mls @ 166.667 mls/hr 04/26/25 02:00 04/26/25 01:13 Vancomycin 1,250 Mg/Ns 250 Ml IVPB 166.67 mls/hr Q12H NUNU Administration Norepinephrine Bitartrate 8 mg in 250 mls @ 7.5 mls/hr 04/25/25 13:42 04/26/25 10:45 Levophed 8 Mg/D5w 250 Ml IV CONT 04/26/25 13:41 4 mcg/min .Q24H STA 7.5 mls/hr Protocol Titration 4 MCG/MIN Lactated Ringer's 1,000 mls @ 100 mls/hr 04/25/25 14:55 04/26/25 10:36 Lr - Lactated Ringers Iv IV CONT 100 mls/hr .Q10H NUNU Administration Cefepime HCl 2 gm/ Sodium 50 mls @ 100 mls/hr 04/26/25 14:00 Chloride IVPB Q8HR NUNU Ondansetron HCl 4 mg 04/25/25 13:44 Ondansetron Inj 4 Mg/2 Ml Vial IV PUSH Q4H PRN Nausea Pantoprazole Sodium 40 mg 04/26/25 09:00 04/26/25 08:37 Pantoprazole 40 Mg Tablet PO 40 mg QAM NUNU Administration Perflutren Lipid Microsphere 0 ml 04/26/25 07:42 Perflutren Lipid Microspheres 1.5 Ml Vial Diluted To 10 Ml Total Volume IV PUSH 04/29/25 07:42 ONCE PRN adequate visualization Protocol Sodium Chloride 10 ml 04/25/25 14:00 04/26/25 05:54 Central Line Flush IV PUSH 10 ml Q8HR NUNU Administration Sodium Chloride 20 ml 04/25/25 13:18 Central Line Flush IV PUSH PRN PRN after blood draws Radiology Results: ITS Impressions Chest X-Ray 04/25/25 13:55 IMPRESSION: 1. Right-sided central venous catheters is tip projecting over the right atrium. 2. Moderate-sized patchy opacities scattered throughout the left lung similar to the study from 04/25/2025 at 12:[address] 04/25/25 14:41 IMPRESSION: 1. No etiology identified to explain the patient's symptoms. Follow up suggested if symptoms persist. ADDENDUM: 04/25/25 1038 The initial report is in error signed off prematurely. The soft tissues are unremarkable. There are no thyroid nodules. There are enlarged lymph nodes in the mediastinum the largest in the right paratracheal space 1.5 x 1.6 cm. There is no cardiomegaly or pericardial effusion. There is no aneurysm identified. No thickening of the esophagus. No acute process within the visualized abdomen. There is a small simple appearing left pleural effusion. No tracheomalacia. No bronchiectasis. Large left upper lobe infiltrate. Minimal emphysematous changes. No significant pulmonary fibrotic changes. No sclerotic or lytic lesions. No acute fractures are identified. IMPRESSION: Large left upper lobe bronchopneumonia with reactive mediastinal lymphadenopathy. Follow-up is recommended to assess. Labs Labs: Laboratory Results - last 24 hr 04/25/25 04/25/25 04/25/25 11:29 11:42 14:34 WBC RBC Hgb Hct MCV MCH MCHC RDW Plt Count MPV Immature Gran % (Auto) Neut % (Auto) Lymph % (Auto) [place] % (Auto) Eos % (Auto) Baso % (Auto) Lymph # (Auto) [place] # (Auto) Eos # (Auto) Baso # (Auto) Abs Immat Gran (auto) Absolute Neuts (auto) Absolute Nucleated RBC Nucleated RBC % Sodium Potassium Chloride Carbon Dioxide Anion Gap BUN Creatinine Estim Creat Clear Calc Estimated GFR Glucose Lactic Acid 1.3 Calcium Magnesium Total Bilirubin AST ALT Alkaline Phosphatase C-Reactive Protein 30.0 H Total Protein Albumin Nasal MRSA (PCR) Not detected Urine Opiates Screen Negative Urine Methadone Screen Negative Ur Barbiturates Screen Negative Ur Phencyclidine Scrn Negative Ur Amphetamine Screen Positive A U Benzodiazepines Scrn Negative Urine Cocaine Screen Negative U Cannabinoids Screen Positive A Hepatitis A IgM Ab Negative Hep Bs Antigen Negative Hep B Core IgM Ab Negative Hepatitis C Ab Screen Negative HIV 1&2 Ab/P24 Ag 4thGn Negative Influenza A (RT-PCR) Negative Influenza B (RT-PCR) Negative RSV (RT-PCR) Negative SARS-CoV-2 RNA (RT-PCR) Negative 04/25/25 04/26/25 18:18 05:49 WBC 12.8 H 12.9 H RBC 4.00 L 3.84 L Hgb 10.7 L 10.4 L Hct 33.1 L 32.4 L MCV 82.8 84.4 MCH 26.8 27.1 MCHC 32.3 32.1 RDW 14.3 14.3 Plt Count 158 232 MPV 9.6 9.5 Immature Gran % (Auto) 5.0 H 7.9 H Neut % (Auto) 75.9 H 62.7 Lymph % (Auto) 7.2 L 12.9 L [place] % (Auto) 11.3 H 14.6 H Eos % (Auto) 0.1 1.2 Baso % (Auto) 0.5 0.7 Lymph # (Auto) 0.92 1.66 [place] # (Auto) 1.5 H 1.9 H Eos # (Auto) 0.0 0.2 Baso # (Auto) 0.1 0.1 Abs Immat Gran (auto) 0.64 H 1.01 H Absolute Neuts (auto) 9.7 H 8.1 H Absolute Nucleated RBC 0.000 0.000 Nucleated RBC % 0.0 0.0 Sodium 133 L 136 L Potassium 3.9 3.4 Chloride 105 105 Carbon Dioxide 24 25 Anion Gap 4 6 BUN 15 12 Creatinine 0.64 L 0.57 L Estim Creat Clear Calc 119 138 Estimated GFR > 60 > 60 Glucose 128 H 120 H Lactic Acid Calcium 7.3 L 7.3 L Magnesium 1.8 2.1 Total Bilirubin 0.2 0.2 AST 18 15 L ALT 22 15 Alkaline Phosphatase 81 86 C-Reactive Protein Total Protein 5.7 L 5.6 L Albumin 2.7 L 2.5 L Nasal MRSA (PCR) Urine Opiates Screen Urine Methadone Screen Ur Barbiturates Screen Ur Phencyclidine Scrn Ur Amphetamine Screen U Benzodiazepines Scrn Urine Cocaine Screen U Cannabinoids Screen Hepatitis A IgM Ab Hep Bs Antigen Hep B Core IgM Ab Hepatitis C Ab Screen HIV 1&2 Ab/P24 Ag 4thGn Influenza A (RT-PCR) Influenza B (RT-PCR) RSV (RT-PCR) SARS-CoV-2 RNA (RT-PCR) Quality VTE Prophylaxis VTE prophylaxis: pharmacologic ordered
[2025-04-26] MEDS: CEFEPIME 2 GM in SODIUM CHLORIDE 0.9% IV 50 ML 100 ML IVPB ×2 (14:08→20:20)
[2025-04-26] MEDS: AZITHROMYCIN IV 500 MG in SODIUM CHLORIDE 0.9% IV 250 ML IVPB (14:08)
[2025-04-26] MEDS: NOREPINEPHRINE 8 MG/D5W 250 ML 8 MG/250 ML BAG 9.38 MG IV CONT (14:14)
[2025-04-26] MEDS: NICOTINE (*PBKC) 14 MG PATCH 1 PATCH TRANSDERM (17:25)
[2025-04-26] MEDS: BENZOCAINE/MENTHOL (*BKC) 18 EA LOZENGE 1 LOZENGE PO (18:08)
[2025-04-27] VITALS (21 sets, daily range): BP systolic 86–129; BP diastolic 55–82; PULSE 63–104; RESP 16–29; TEMP 36.7–37.2; O2SAT 91–100
[2025-04-27] MEDS: BENZONATATE 100 MG CAPSULE 200 MG PO ×3 (00:46→21:55)
[2025-04-27] MEDS: ACETAMINOPHEN 325 MG TABLET 650 MG PO (00:54)
[2025-04-27] MEDS: VANCOMYCIN 1,500 MG/NS 500 ML 1,500 MG/500 ML BAG 250 MG IVPB (01:51)
[2025-04-27] MEDS: CEFEPIME 2 GM in SODIUM CHLORIDE 0.9% IV 50 ML 100 ML IVPB ×3 (05:09→21:55)
[2025-04-27] MEDS: CENTRAL LINE FLUSH 10 ML IV PUSH ×2 (05:10→13:44)
[2025-04-27] MEDS: HYDROcodone/acetaminophen (*CRX) 5-325 MG TABLET 1 TAB PO ×3 (05:20→19:54)
[2025-04-27 05:23] LABS: Hematocrit 31.9 % (42.0-52.0); Hemoglobin 10.2 g/dL (14.0-18.0); Immature Granulocyte Percent A 10.4 % (0-0.5); Lymphocytes Absolute Auto 1.50 K/mm3 (0.9-3.2); Mean Corpuscular HGB Conc 32.0 g/dl (32-36); Mean Corpuscular Hemoglobin 27.1 pg (26-34); Mean Corpuscular Volume 84.6 fl (80-100); Nucleated Red Blood Cells Absolute Auto 0.000 K/mm3 (0.0-0.012); Nucleated Red Blood Cells Perc 0.0 % (0.0-0.2); Platelet Count Result 236 k/mm3 (150-375); Red Blood Count 3.77 M/mm3 (4.6-6.20); White Blood Count 8.2 K/mm3 (4.5-10.0)
[2025-04-27 05:48] LABS: Alanine Aminotransferase 14 U/L (6-50); Albumin Level 2.3 g/dL (3.5-5.1); Alkaline Phosphatase 68 U/L (38-126); Anion Gap 5 mmol/L (4-12); Aspartate Amino Transferase 18 U/L (17-59); Bilirubin,Total < 0.1 mg/dL (0.2-1.3); Blood Urea Nitrogen 12 mg/dL (9-20); Calcium 7.4 mg/dL (8.4-10.2); Carbon Dioxide 26 mmol/L (22-30); Chloride 104 mmol/L (98-107); Estimated CRCL calculation 135 ml/min; Estimated Glomerular Filt Rate > 60; Glucose 99 mg/dL (65-110); Magnesium 1.6 mg/dL (1.6-2.3); Potassium 3.9 mmol/L (3.4-5.0); Sodium 135 mmol/L (137-145); Total Protein 5.2 g/dL (6.3-8.2)
[2025-04-27 06:23] LABS: Burr Cells 1+; Ovalocytes Occasional; Schistocytes None Seen
--- NOTE | 2025-04-27 08:21 | WPDINTPN ---
Progress Note: A&P Assessment and Plan (1) Septic shock: Code(s): A41.9 - Sepsis, unspecified organism; R65.21 - Severe sepsis with septic shock Status: Acute Assessment and Plan: Septic shock secondary to community-acquired pneumonia in a person with IV drug use Patient received IV fluid bolus despite which he was hypotensive, requiring vasopressors -patient currently off Levophed since the evening of 04/26/202504/25: Blood cultures pending 04/25: Urine culture pending 04/25: Urine Legionella and urine strep antigen pending 04/26: On discontinue ceftriaxone, and start cefepime given significant consolidation/infiltrates, high risk for MDR given homeless situation, IV drug abuse. Continue with azithromycin and vanc (started on 04/25) 04/27: Continue cefepime, azithromycin, MRSA screen is negative, will discontinue vancomycin -HIV and hepatitis screen are negative -04/26/2025: Echocardiogram: Showed normal LV size and wall thickness, normal LV systolic and diastolic function, EF 60-65%. Normal RV systolic function and size. Mild biatrial enlargement, no significant valvular abnormalities. RVSP 31 mmHg 04/25/2025: CT scan of the chest: Large left upper lobe bronchopneumonia with reactive mediastinal lymphadenopathy. Follow-up is recommended to assess. (2) Community acquired pneumonia: Qualifiers: Laterality: left Lung location: upper lobe of lung Qualified Code(s): J18.9 - Pneumonia, unspecified organism Code(s): J18.9 - Pneumonia, unspecified organism Status: Acute Assessment and Plan: Community-acquired pneumonia with high risk for MDR -antibiotics as above -04/27: Chest x-ray showed persistent left and developing right pneumonia. (3) IV drug user: Code(s): F19.90 - Other psychoactive substance use, unspecified, uncomplicated Status: Acute Assessment and Plan: Urine drug screen was positive for methamphetamines and cannabinoids -patient states he quit methamphetamines 1 month ago. -methamphetamine in the urine is detected up until 3-5 days after the last use/administration -Patient was counseled and encouraged to quit drug use (4) Tobacco use: Code(s): Z72.0 - Tobacco use Status: Acute Assessment and Plan: Nicotine patch -counseled patient on cessation of tobacco use Plan DVT prophylaxis: Lovenox Stress ulcer prophylaxis: Not indicated Nutrition: Tolerating Regular diet Code Status -patient wishes to be Full Code. He is and does not have any biological children. He request that his friend Aline be considered healthcare power deputy county attorney if he is unable to make decisions on his behalf. Total Critical Care Time - 32 minutes Due to a high probability of clinically significant, life threatening deterioration, the patient required my highest level of preparedness to intervene emergently and I personally spent this critical care time directly and personally managing the patient. This critical care time included obtaining a history; examining the patient; pulse oximetry; ordering and review of studies; arranging urgent treatment with development of a management plan; evaluation of patient's response to treatment; frequent reassessment; and discussions with other providers. It was exclusive of separately billable procedures and treating other patients and teaching time. Please see Assessment and Plan section and the rest of the note for further information on patient assessment and treatment This dictation may have been done utilizing a voice recognition system. Attempts have been made to correct errors. However, there may be uncorrected grammatical, spelling, and recognitions errors present. Subjective Date/time seen: 04/27/25 08:21 Interval history: Reason for consult: Septic shock, pneumonia, IV drug use 04/27/2023: Patient seen and examined the ICU, is awake, alert, oriented. States he feels better. Off Levophed since last evening. Continues to complain of cough and pleuritic chest pain on the left side. On maintenance IV fluids, urine output has been adequate, afebrile, hemodynamically stable, good O2 sats on room air . Denies any abdominal pain, nausea, vomiting at this time. Tolerating p.o. diet Review of Systems Review of Systems: All systems reviewed & are unremarkable except as noted in HPI and below (HPI) Exam Narrative: General: Frail male who appears sick and toxic and appears older than his age HEENT: Sclera is clear, pupils equal and reactive, moist oral mucosa Lungs/Chest: Trachea central Clear BS B/L, left basilar crackles, no wheezing Cardiac: Regular rate and rhythm Normal S1 S2. No murmurs Circulation: Pedal pulses are intact and symmetrical. Abdomen: Normal bowel sounds. Soft. NT. ND. Extremities: No clubbing, cyanosis or edema. Warm : De Jesus in place Neurologic: Answers to questions appropriately Follows commands. Moves all 4 extremities alert and oriented x3 Skin: No Rash, track pantoja in left antecubital area from IV drug use Objective Data Vital Signs Vital Signs: Vital Signs - 24 hr 04/26/25 08:43 04/26/25 09:00 04/26/25 10:00 Temperature 97.7 F Pulse Rate 77 63 68 Respiratory Rate 23 H 18 Blood Pressure 106/78 116/81 86/55 L Pulse Oximetry 100 99 Oxygen Delivery 04/26/25 10:00 04/26/25 10:00 04/26/25 10:45 Temperature Pulse Rate 68 80 82 Respiratory Rate Blood Pressure 86/55 L 114/75 Pulse Oximetry Oxygen Delivery 04/26/25 11:00 04/26/25 12:00 04/26/25 12:00 Temperature 98.0 F Pulse Rate 63 74 74 Respiratory Rate 24 H 20 Blood Pressure 109/82 107/85 107/85 Pulse Oximetry 95 100 Oxygen Delivery 04/26/25 12:00 04/26/25 12:00 04/26/25 13:00 Temperature Pulse Rate 86 66 Respiratory Rate 18 Blood Pressure 84/54 L Pulse Oximetry 100 95 Oxygen Delivery Room Air 04/26/25 13:18 04/26/25 14:00 04/26/25 14:00 Temperature 98.2 F Pulse Rate 51 L 77 68 Respiratory Rate 18 Blood Pressure 86/63 L 111/78 Pulse Oximetry 98 Oxygen Delivery 04/26/25 14:14 04/26/25 15:00 04/26/25 16:00 Temperature Pulse Rate 68 74 74 Respiratory Rate 15 Blood Pressure 111/78 135/73 123/88 Pulse Oximetry 100 Oxygen Delivery 04/26/25 16:00 04/26/25 16:00 04/26/25 16:00 Temperature 97.7 F Pulse Rate 74 63 Respiratory Rate 25 H Blood Pressure 123/88 Pulse Oximetry 100 95 Oxygen Delivery Room Air 04/26/25 17:00 04/26/25 17:27 04/26/25 17:51 Temperature Pulse Rate 75 97 86 Respiratory Rate 24 H Blood Pressure 108/68 110/73 104/67 Pulse Oximetry 99 Oxygen Delivery 04/26/25 18:00 04/26/25 18:00 04/26/25 18:02 Temperature 98.5 F Pulse Rate 101 H 87 80 Respiratory Rate 25 H Blood Pressure 107/70 107/70 Pulse Oximetry 95 Oxygen Delivery 04/26/25 18:30 04/26/25 18:45 04/26/25 19:00 Temperature Pulse Rate 81 82 98 Respiratory Rate 20 Blood Pressure 105/80 106/75 118/64 Pulse Oximetry 99 Oxygen Delivery 04/26/25 20:00 04/26/25 20:00 04/26/25 20:00 Temperature 99 F Pulse Rate 86 86 86 Respiratory Rate 17 17 Blood Pressure 111/85 Pulse Oximetry 94 94 Oxygen Delivery Room Air 04/26/25 20:00 04/26/25 20:58 04/26/25 22:00 Temperature 98 F Pulse Rate 86 86 100 Respiratory Rate 17 Blood Pressure 111/85 111/85 109/68 Pulse Oximetry 94 Oxygen Delivery 04/26/25 22:00 04/26/25 22:00 04/26/25 23:00 Temperature 98.8 F Pulse Rate 100 100 99 Respiratory Rate 22 H 23 H Blood Pressure 109/68 119/92 H Pulse Oximetry 96 96 Oxygen Delivery 04/27/25 00:00 04/27/25 00:00 04/27/25 00:00 Temperature Pulse Rate 103 H 103 H 104 H Respiratory Rate 23 H Blood Pressure 111/80 Pulse Oximetry 96 Oxygen Delivery Room Air 04/27/25 00:00 04/27/25 01:00 04/27/25 02:00 Temperature 99 F Pulse Rate 104 H 96 90 Respiratory Rate 29 H 22 H Blood Pressure 111/80 108/80 101/66 Pulse Oximetry 96 96 Oxygen Delivery 04/27/25 02:00 04/27/25 02:00 04/27/25 03:00 Temperature 98.8 F Pulse Rate 85 86 87 Respiratory Rate 20 22 H Blood Pressure 101/66 86/72 L Pulse Oximetry 92 98 Oxygen Delivery 04/27/25 04:00 04/27/25 04:00 04/27/25 04:00 Temperature Pulse Rate 76 71 Respiratory Rate Blood Pressure 106/70 Pulse Oximetry Oxygen Delivery Room Air 04/27/25 04:00 04/27/25 05:00 04/27/25 06:00 Temperature Pulse Rate 71 71 63 Respiratory Rate 22 H 22 H Blood Pressure 106/70 95/64 L Pulse Oximetry 95 92 Oxygen Delivery 04/27/25 06:00 04/27/25 06:00 Temperature 98.7 F Pulse Rate 66 63 Respiratory Rate 18 Blood Pressure 102/67 103/67 Pulse Oximetry 91 Oxygen Delivery Intake/Output Intake/Output: Intake & Output 04/24/25 04/25/25 04/26/25 04/27/25 23:59 23:59 23:59 23:59 Intake Total 4086.5 5221.2 550 Output Total 1050 1800 1125 Balance 3036.5 3421.2 -575 Meds/Results Medications: Active Medications Generic Name Dose Route Start Last Admin Trade Name Freq PRN Reason Stop Dose Admin Acetaminophen 650 mg 04/25/25 13:44 04/27/25 00:54 Acetaminophen 325 Mg Tablet PO 650 mg Q4H PRN Administration Mild Pain (1-3) or Fever Hydrocodone Bitart/Acetaminophen 1 tab 04/25/25 13:44 04/27/25 05:20 Hydrocodone/Acetaminophen (*Crx) 5-325 Mg Tablet PO 1 tab Q4H PRN Administration Pain Rated 4-6 Benzocaine 1 lozenge 04/25/25 17:27 04/26/25 18:08 Benzocaine/Menthol (*Bkc) 18 Ea Lozenge PO 1 lozenge PRN PRN Administration Sore Throat Benzonatate 200 mg 04/27/25 14:00 Benzonatate 100 Mg Capsule PO Q8HR NUNU Calcium Carbonate 200 mg 04/26/25 10:34 04/26/25 10:41 Calcium Carbonate (Tums) 500 Mg (200 Mg Elemental) PO 200 mg Q6H PRN Administration Indigestion Enoxaparin Sodium 40 mg 04/26/25 09:00 04/26/25 08:37 Enoxaparin 40 Mg/0.4 Ml Syringe SUB-Q 40 mg DAILY NUNU Administration Guaifenesin/Dextromethorphan 1 tab 04/25/25 17:20 04/26/25 20:18 Guaifenesin 600 Mg/Dextromethorphan 30 Mg Sr Tab 12 Hr PO 1 tab Q12HR NUNU Administration Azithromycin 500 mg/ Sodium 250 mls @ 250 mls/hr 04/26/25 14:00 04/26/25 15:15 Chloride IVPB 04/29/25 14:59 Infused Q24H NUNU Infusion Cefepime HCl 2 gm/ Sodium 50 mls @ 100 mls/hr 04/26/25 14:00 04/27/25 07:43 Chloride IVPB Infused Q8HR NUNU Infusion Norepinephrine Bitartrate 8 mg in 250 mls @ 0 mls/hr 04/26/25 13:20 04/27/25 06:00 Levophed 8 Mg/D5w 250 Ml IV CONT 0 mcg/min .Q0M NUNU 0 mls/hr Protocol Titration 0 MCG/MIN Vancomycin HCl 1,500 mg in 500 mls @ 250 mls/hr 04/27/25 02:00 04/27/25 03:51 Vancomycin 1,500 Mg/Ns 500 Ml IVPB Infused Q8H NUNU Infusion Nicotine 1 patch 04/26/25 16:50 04/26/25 17:25 Nicotine (*Pbkc) 14 Mg Patch TRANSDERM 1 patch DAILY NUNU Administration Ondansetron HCl 4 mg 04/25/25 13:44 Ondansetron Inj 4 Mg/2 Ml Vial IV PUSH Q4H PRN Nausea Pantoprazole Sodium 40 mg 04/26/25 09:00 04/26/25 08:37 Pantoprazole 40 Mg Tablet PO 40 mg QAM NUNU Administration Perflutren Lipid Microsphere 0 ml 04/26/25 07:42 Perflutren Lipid Microspheres 1.5 Ml Vial Diluted To 10 Ml Total Volume IV PUSH 04/29/25 07:42 ONCE PRN adequate visualization Protocol Sodium Chloride 10 ml 04/25/25 14:00 04/27/25 05:10 Central Line Flush IV PUSH 10 ml Q8HR NUNU Administration Sodium Chloride 20 ml 04/25/25 13:18 Central Line Flush IV PUSH PRN PRN after blood draws Radiology Results: ITS Impressions Chest CT 04/25/25 14:41 IMPRESSION: 1. No etiology identified to explain the patient's symptoms. Follow up suggested if symptoms persist. ADDENDUM: 04/25/25 6706 The initial report is in error signed off prematurely. The soft tissues are unremarkable. There are no thyroid nodules. There are enlarged lymph nodes in the mediastinum the largest in the right paratracheal space 1.5 x 1.6 cm. There is no cardiomegaly or pericardial effusion. There is no aneurysm identified. No thickening of the esophagus. No acute process within the visualized abdomen. There is a small simple appearing left pleural effusion. No tracheomalacia. No bronchiectasis. Large left upper lobe infiltrate. Minimal emphysematous changes. No significant pulmonary fibrotic changes. No sclerotic or lytic lesions. No acute fractures are identified. IMPRESSION: Large left upper lobe bronchopneumonia with reactive mediastinal lymphadenopathy. Follow-up is recommended to assess. Labs Labs: Laboratory Results - last 24 hr 04/25/25 04/27/25 04/27/25 14:33 00:51 05:16 WBC 8.2 RBC 3.77 L Hgb 10.2 L Hct 31.9 L MCV 84.6 MCH 27.1 MCHC 32.0 RDW 14.1 Plt Count 236 MPV 9.5 Immature Gran % (Auto) 10.4 H Neut % (Auto) 59.6 Lymph % (Auto) 18.3 [place] % (Auto) 8.4 Eos % (Auto) 2.4 Baso % (Auto) 0.9 Lymph # (Auto) 1.50 [place] # (Auto) 0.7 H Eos # (Auto) 0.2 Baso # (Auto) 0.1 Abs Immat Gran (auto) 0.85 H Absolute Neuts (auto) 4.9 Absolute Nucleated RBC 0.000 Band Neutrophils % Not Reportable Nucleated RBC % 0.0 Atypical Lymphocytes Present Platelet Estimate Adequate Ovalocytes Occasional [place] Cells 1+ Schistocytes None seen Sodium 135 L Potassium 3.9 Chloride 104 Carbon Dioxide 26 Anion Gap 5 BUN 12 Creatinine 0.60 L Estim Creat Clear Calc 135 Estimated GFR > 60 Glucose 99 Calcium 7.4 L Phosphorus 4.4 Magnesium 1.6 Total Bilirubin < 0.1 L AST 18 ALT 14 Alkaline Phosphatase 68 Total Protein 5.2 L Albumin 2.3 L Vancomycin Trough 8.0 L M.pneumoniae IgM Titer <770 Quality VTE Prophylaxis VTE prophylaxis: pharmacologic ordered
[2025-04-27] MEDS: NICOTINE (*PBKC) 14 MG PATCH 1 PATCH TRANSDERM (08:45)
[2025-04-27] MEDS: guaiFENesin 600 MG/DEXTROMETHORPHAN 30 MG SR TAB 12 HR 1 TAB PO ×2 (08:45→20:34)
[2025-04-27] MEDS: PANTOPRAZOLE 40 MG TABLET PO (08:45)
[2025-04-27] MEDS: ENOXAPARIN 40 MG/0.4 ML SYRINGE SUB-Q (08:46)
[2025-04-27] MEDS: BENZOCAINE/MENTHOL (*BKC) 18 EA LOZENGE 1 LOZENGE PO ×2 (08:48→20:34)
[2025-04-27] MEDS: ONDANSETRON INJ 4 MG/2 ML VIAL IV PUSH (13:25)
[2025-04-27] MEDS: AZITHROMYCIN IV 500 MG in SODIUM CHLORIDE 0.9% IV 250 ML IVPB (13:46)
--- NOTE | 2025-04-27 14:26 | P.PNIM_ITS ---
Progress Note: A&P Assessment and Plan (1) Septic shock: Code(s): A41.9 - Sepsis, unspecified organism; R65.21 - Severe sepsis with septic shock Status: Acute Assessment and Plan: Septic shock secondary to community-acquired pneumonia in a person with IV drug use Chest CT showing large left upper lobe bronchopneumonia with reactive mediastinal lymphadenopathy. Patient received IV fluid bolus despite which he was hypotensive, requiring vasopressors Started on Levophed but able to be weaned off the evening of 04/26/25 10: Blood cultures pending 04/25: Urine culture pending 04/25: Urine Legionella pending Urine strep antigen positive. HIV and hepatitis screen are negative. Echo showing normal LV size and wall thickness, normal LV systolic and diastolic function, EF 60-65%, normal RV size and systolic function and mild biatrial enlargement. No significant valvular abnormality. Started on Azithromycin, Rocephin and Vanco. Rocephin changed to cefepime 04/26 given significant consolidation/infiltrates, high risk for MDR given homeless situation, IV drug abuse. MRSA screen is negative so vancomycin stopped today Chest x-ray today reviewed personally showing persistent left and developing rig ht pneumonia. Remains on room air. WBC normal now. No fevers. Follow up on culture results. Continue IV abx. (2) Community acquired pneumonia: Qualifiers: Laterality: left Lung location: upper lobe of lung Qualified Code(s): J18.9 - Pneumonia, unspecified organism Code(s): J18.9 - Pneumonia, unspecified organism Status: Acute Assessment and Plan: Community-acquired pneumonia with high risk for MDR As above (3) IV drug user: Code(s): F19.90 - Other psychoactive substance use, unspecified, uncomplicated Status: Acute Assessment and Plan: Urine drug screen was positive for methamphetamines and cannabinoids Recent methamphetamine use since meth in the urine is detected up until 3-5 days after the last use/administration Patient was counseled and encouraged to quit drug use (4) Tobacco use: Code(s): Z72.0 - Tobacco use Status: Acute Assessment and Plan: Nicotine patch Counseled patient on cessation of tobacco use Plan DVT prophylaxis: Lovenox Code Status -patient wishes to be Full Code. He is and does not have any biological children. He request that his friend Aline be considered healthcare power civil litigation attorney if he is unable to make decisions on his behalf. Subjective Date/time seen: 04/27/25 14:26 Interval history: 44yo male with history of IV methamphetamine use, current smoker presents to the ED on 04/25/2025 with complaints of 5 day history of cough and fever. Assuming care. Chart reviewed. He has been able to be weaned off Levophed. Vancomycin has been stopped. He denies nausea or vomiting. He has noted his appetite has been decreased today. Cough is still nonproductive. He is having mostly left-sided pleuritic chest pain. Exam Narrative: AF 98.2 115/70 78 17 99% ra Gen - NARD Chest - left mid and lower lung field inspiratory crackles. Right base crackles. CV - RRR. Telemetry showing no significant dysrhythmias Abd - soft, NT, ND Ext - no pedal edema. 2+ DP pulses bilaterally. Neuro - Alert and appropriate. Skin - warm and dry Psych - nml mood and affect. Objective Data Vital Signs Vital Signs: Vital Signs - 24 hr 04/26/25 15:00 04/26/25 16:00 04/26/25 16:00 Temperature Pulse Rate 74 74 Respiratory Rate 15 Blood Pressure 135/73 123/88 Pulse Oximetry 100 100 Oxygen Delivery Room Air 04/26/25 16:00 04/26/25 16:00 04/26/25 17:00 Temperature 97.7 F Pulse Rate 74 63 75 Respiratory Rate 25 H 24 H Blood Pressure 123/88 108/68 Pulse Oximetry 95 99 Oxygen Delivery 04/26/25 17:27 04/26/25 17:51 04/26/25 18:00 Temperature 98.5 F Pulse Rate 97 86 101 H Respiratory Rate 25 H Blood Pressure 110/73 104/67 107/70 Pulse Oximetry 95 Oxygen Delivery 04/26/25 18:00 04/26/25 18:02 04/26/25 18:30 Temperature Pulse Rate 87 80 81 Respiratory Rate Blood Pressure 107/70 105/80 Pulse Oximetry Oxygen Delivery 04/26/25 18:45 04/26/25 19:00 04/26/25 20:00 Temperature Pulse Rate 82 98 86 Respiratory Rate 20 17 Blood Pressure 106/75 118/64 Pulse Oximetry 99 94 Oxygen Delivery Room Air 04/26/25 20:00 04/26/25 20:00 04/26/25 20:00 Temperature 99 F Pulse Rate 86 86 86 Respiratory Rate 17 Blood Pressure 111/85 111/85 Pulse Oximetry 94 Oxygen Delivery 04/26/25 20:58 04/26/25 22:00 04/26/25 22:00 Temperature 98 F Pulse Rate 86 100 100 Respiratory Rate 17 Blood Pressure 111/85 109/68 Pulse Oximetry 94 Oxygen Delivery 04/26/25 22:00 04/26/25 23:00 04/27/25 00:00 Temperature 98.8 F Pulse Rate 100 99 103 H Respiratory Rate 22 H 23 H Blood Pressure 109/68 119/92 H 111/80 Pulse Oximetry 96 96 Oxygen Delivery 04/27/25 00:00 04/27/25 00:00 04/27/25 00:00 Temperature 99 F Pulse Rate 103 H 104 H 104 H Respiratory Rate 23 H 29 H Blood Pressure 111/80 Pulse Oximetry 96 96 Oxygen Delivery Room Air 04/27/25 01:00 04/27/25 02:00 04/27/25 02:00 Temperature Pulse Rate 96 90 85 Respiratory Rate 22 H Blood Pressure 108/80 101/66 Pulse Oximetry 96 Oxygen Delivery 04/27/25 02:00 04/27/25 03:00 04/27/25 04:00 Temperature 98.8 F Pulse Rate 86 87 76 Respiratory Rate 20 22 H Blood Pressure 101/66 86/72 L 106/70 Pulse Oximetry 92 98 Oxygen Delivery 04/27/25 04:00 04/27/25 04:00 04/27/25 04:00 Temperature Pulse Rate 71 71 Respiratory Rate 22 H Blood Pressure 106/70 Pulse Oximetry 95 Oxygen Delivery Room Air 04/27/25 05:00 04/27/25 06:00 04/27/25 06:00 Temperature 98.7 F Pulse Rate 71 63 66 Respiratory Rate 22 H 18 Blood Pressure 95/64 L 102/67 Pulse Oximetry 92 91 Oxygen Delivery 04/27/25 06:00 04/27/25 07:00 04/27/25 08:00 Temperature Pulse Rate 63 68 Respiratory Rate 21 H Blood Pressure 103/67 111/71 Pulse Oximetry 93 Oxygen Delivery Room Air 04/27/25 08:00 04/27/25 08:00 04/27/25 08:00 Temperature 98.0 F Pulse Rate 72 72 71 Respiratory Rate 25 H Blood Pressure 101/70 101/70 Pulse Oximetry 96 Oxygen Delivery 10/22/25 09:00 04/27/25 10:00 04/27/25 10:00 Temperature Pulse Rate 72 72 72 Respiratory Rate 24 H Blood Pressure 100/55 L 108/72 Pulse Oximetry 94 Oxygen Delivery 04/27/25 10:00 04/27/25 11:00 04/27/25 12:00 Temperature 98.1 F Pulse Rate 72 64 96 Respiratory Rate 27 H 21 H Blood Pressure 108/72 129/76 122/78 Pulse Oximetry 96 98 Oxygen Delivery 04/27/25 12:00 04/27/25 12:00 04/27/25 13:00 Temperature 98.2 F Pulse Rate 73 88 Respiratory Rate 24 H 18 Blood Pressure 122/78 109/77 Pulse Oximetry 100 100 96 Oxygen Delivery Room Air 04/27/25 14:00 Temperature 98.2 F Pulse Rate 78 Respiratory Rate 17 Blood Pressure 115/70 Pulse Oximetry 99 Oxygen Delivery Intake/Output Intake/Output: Intake & Output 04/24/25 04/25/25 04/26/25 04/27/25 23:59 23:59 23:59 23:59 Intake Total 4086.5 5221.2 2430 Output Total 1050 1800 2975 Balance 3036.5 3421.2 -545 Meds/Results Medications: Active Medications Generic Name Dose Route Start Last Admin Trade Name Freq PRN Reason Stop Dose Admin Acetaminophen 650 mg 04/25/25 13:44 04/27/25 00:54 Acetaminophen 325 Mg Tablet PO 650 mg Q4H PRN Administration Mild Pain (1-3) or Fever Hydrocodone Bitart/Acetaminophen 1 tab 04/25/25 13:44 04/27/25 13:27 Hydrocodone/Acetaminophen (*Crx) 5-325 Mg Tablet PO 1 tab Q4H PRN Administration Pain Rated 4-6 Benzocaine 1 lozenge 04/25/25 17:27 04/27/25 08:48 Benzocaine/Menthol (*Bkc) 18 Ea Lozenge PO 1 lozenge PRN PRN Administration Sore Throat Benzonatate 200 mg 04/27/25 14:00 04/27/25 13:26 Benzonatate 100 Mg Capsule PO 200 mg Q8HR NUNU Administration Calcium Carbonate 200 mg 04/26/25 10:34 04/26/25 10:41 Calcium Carbonate (Tums) 500 Mg (200 Mg Elemental) PO 200 mg Q6H PRN Administration Indigestion Enoxaparin Sodium 40 mg 04/26/25 09:00 04/27/25 08:46 Enoxaparin 40 Mg/0.4 Ml Syringe SUB-Q 40 mg DAILY NUNU Administration Guaifenesin/Dextromethorphan 1 tab 04/25/25 17:20 04/27/25 08:45 Guaifenesin 600 Mg/Dextromethorphan 30 Mg Sr Tab 12 Hr PO 1 tab Q12HR NUNU Administration Azithromycin 500 mg/ Sodium 250 mls @ 250 mls/hr 04/26/25 14:00 04/27/25 13:46 Chloride IVPB 04/29/25 14:59 250 mls/hr Q24H NUNU Administration Cefepime HCl 2 gm/ Sodium 50 mls @ 100 mls/hr 04/26/25 14:00 04/27/25 13:44 Chloride IVPB 100 mls/hr Q8HR NUNU Administration Nicotine 1 patch 04/26/25 16:50 04/27/25 08:45 Nicotine (*Pbkc) 14 Mg Patch TRANSDERM 1 patch DAILY NUNU Administration Ondansetron HCl 4 mg 04/25/25 13:44 04/27/25 13:25 Ondansetron Inj 4 Mg/2 Ml Vial IV PUSH 4 mg Q4H PRN Administration Nausea Pantoprazole Sodium 40 mg 04/26/25 09:00 04/27/25 08:45 Pantoprazole 40 Mg Tablet PO 40 mg QAM NUNU Administration Perflutren Lipid Microsphere 0 ml 04/26/25 07:42 Perflutren Lipid Microspheres 1.5 Ml Vial Diluted To 10 Ml Total Volume IV PUSH 04/29/25 07:42 ONCE PRN adequate visualization Protocol Sodium Chloride 10 ml 04/25/25 14:00 04/27/25 13:44 Central Line Flush IV PUSH 10 ml Q8HR NUNU Administration Sodium Chloride 20 ml 04/25/25 13:18 Central Line Flush IV PUSH PRN PRN after blood draws Radiology Results: ITS Impressions Chest CT 04/25/25 14:41 IMPRESSION: 1. No etiology identified to explain the patient's symptoms. Follow up suggested if symptoms persist. ADDENDUM: 04/25/25 1266 The initial report is in error signed off prematurely. The soft tissues are unremarkable. There are no thyroid nodules. There are enlarged lymph nodes in the mediastinum the largest in the right paratracheal space 1.5 x 1.6 cm. There is no cardiomegaly or pericardial effusion. There is no aneurysm identified. No thickening of the esophagus. No acute process within the visualized abdomen. There is a small simple appearing left pleural effusion. No tracheomalacia. No bronchiectasis. Large left upper lobe infiltrate. Minimal emphysematous changes. No significant pulmonary fibrotic changes. No sclerotic or lytic lesions. No acute fractures are identified. IMPRESSION: Large left upper lobe bronchopneumonia with reactive mediastinal lym phadenopathy. Follow-up is recommended to assess. Chest X-Ray 04/27/25 08:06 IMPRESSION: 1. Persistent left and developing right pneumonia. Labs Labs: Laboratory Results - last 24 hr 04/25/25 04/27/25 04/27/25 14:33 00:51 05:16 WBC 8.2 RBC 3.77 L Hgb 10.2 L Hct 31.9 L MCV 84.6 MCH 27.1 MCHC 32.0 RDW 14.1 Plt Count 236 MPV 9.5 Immature Gran % (Auto) 10.4 H Neut % (Auto) 59.6 Lymph % (Auto) 18.3 [place] % (Auto) 8.4 Eos % (Auto) 2.4 Baso % (Auto) 0.9 Lymph # (Auto) 1.50 [place] # (Auto) 0.7 H Eos # (Auto) 0.2 Baso # (Auto) 0.1 Abs Immat Gran (auto) 0.85 H Absolute Neuts (auto) 4.9 Absolute Nucleated RBC 0.000 Band Neutrophils % Not Reportable Nucleated RBC % 0.0 Atypical Lymphocytes Present Platelet Estimate Adequate Ovalocytes Occasional [place] Cells 1+ Schistocytes None seen Sodium 135 L Potassium 3.9 Chloride 104 Carbon Dioxide 26 Anion Gap 5 BUN 12 Creatinine 0.60 L Estim Creat Clear Calc 135 Estimated GFR > 60 Glucose 99 Calcium 7.4 L Phosphorus 4.4 Magnesium 1.6 Total Bilirubin < 0.1 L AST 18 ALT 14 Alkaline Phosphatase 68 Total Protein 5.2 L Albumin 2.3 L Vancomycin Trough 8.0 L M.pneumoniae IgM Titer <770
--- NOTE | 2025-04-27 22:18 | PC.NURSE ---
This patient, Wyatt Mcclelland, was received from [ ] on 04/27/25 at [id number]. Patient/family oriented to unit policies and routines
[2025-04-28] MEDS: ACETAMINOPHEN 325 MG TABLET 650 MG PO (00:25)
[2025-04-28 04:23] VITALS: BP 113/78; PULSE 80; RESP 16; TEMP 37; O2SAT 97
[2025-04-28 05:04] LABS: Hematocrit 34.2 % (42.0-52.0); Hemoglobin 11.0 g/dL (14.0-18.0); Immature Granulocyte Percent A 9.0 % (0-0.5); Lymphocytes Absolute Auto 1.75 K/mm3 (0.9-3.2); Mean Corpuscular HGB Conc 32.2 g/dl (32-36); Mean Corpuscular Hemoglobin 26.9 pg (26-34); Mean Corpuscular Volume 83.6 fl (80-100); Nucleated Red Blood Cells Absolute Auto 0.000 K/mm3 (0.0-0.012); Nucleated Red Blood Cells Perc 0.0 % (0.0-0.2); Platelet Count Result 313 k/mm3 (150-375); Red Blood Count 4.09 M/mm3 (4.6-6.20); White Blood Count 10.3 K/mm3 (4.5-10.0)
[2025-04-28 05:15] LABS: Alanine Aminotransferase 17 U/L (6-50); Albumin Level 2.6 g/dL (3.5-5.1); Alkaline Phosphatase 69 U/L (38-126); Anion Gap 3 mmol/L (4-12); Aspartate Amino Transferase 26 U/L (17-59); Bilirubin,Total 0.1 mg/dL (0.2-1.3); Blood Urea Nitrogen 12 mg/dL (9-20); Calcium 7.9 mg/dL (8.4-10.2); Carbon Dioxide 29 mmol/L (22-30); Chloride 103 mmol/L (98-107); Estimated CRCL calculation 109 ml/min; Estimated Glomerular Filt Rate > 60; Glucose 103 mg/dL (65-110); Magnesium 1.9 mg/dL (1.6-2.3); Potassium 4.0 mmol/L (3.4-5.0); Sodium 135 mmol/L (137-145); Total Protein 5.6 g/dL (6.3-8.2)
[2025-04-28] MEDS: BENZONATATE 100 MG CAPSULE 200 MG PO ×3 (05:25→21:27)
[2025-04-28] MEDS: CEFEPIME 2 GM in SODIUM CHLORIDE 0.9% IV 50 ML 100 ML IVPB ×3 (05:26→21:27)
[2025-04-28] MEDS: NICOTINE (*PBKC) 14 MG PATCH 1 PATCH TRANSDERM (09:01)
[2025-04-28] MEDS: PANTOPRAZOLE 40 MG TABLET PO (09:01)
[2025-04-28] MEDS: guaiFENesin 600 MG/DEXTROMETHORPHAN 30 MG SR TAB 12 HR 1 TAB PO ×2 (09:01→21:27)
[2025-04-28] MEDS: ENOXAPARIN 40 MG/0.4 ML SYRINGE SUB-Q (09:01)
[2025-04-28] MEDS: BENZOCAINE/MENTHOL (*BKC) 18 EA LOZENGE 1 LOZENGE PO (09:01)
[2025-04-28] MEDS: HYDROcodone/acetaminophen (*CRX) 5-325 MG TABLET 1 TAB PO (09:05)
--- NOTE | 2025-04-28 11:48 | PM.IMPN ---
Progress Note: A&P Assessment and Plan (1) Septic shock: Code(s): A41.9 - Sepsis, unspecified organism; R65.21 - Severe sepsis with septic shock Status: Acute Assessment and Plan: Septic shock secondary to community-acquired pneumonia in a person with IV drug use Chest CT showing large left upper lobe bronchopneumonia with reactive mediastinal lymphadenopathy. Patient received IV fluid bolus despite which he was hypotensive, requiring vasopressors Started on Levophed but able to be weaned off the evening of 04/26/2504/25: Blood cultures positive 04/25: Urine culture pending 04/25: Urine Legionella negative. Urine strep antigen positive. HIV and hepatitis screen are negative. Echo showing normal LV size and wall thickness, normal LV systolic and diastolic function, EF 60-65%, normal RV size and systolic function and mild biatrial enlargement. No significant valvular abnormality. Started on Azithromycin, Rocephin and Vanco. Rocephin changed to cefepime 04/26 given significant consolidation/infiltrates, high risk for MDR given homeless situation, IV drug abuse. MRSA screen is negative so vancomycin stopped 04/27 Chest x-ray 04/27 showing persistent left and developing right pneumonia. Remains on room air. WBC up again to 10.3K. No fevers. Follow up on culture results. Continue current IV abx. PEP therapy. Repeat BCx. (2) Community acquired pneumonia: Qualifiers: Laterality: left Lung location: upper lobe of lung Qualified Code(s): J18.9 - Pneumonia, unspecified organism Code(s): J18.9 - Pneumonia, unspecified organism Status: Acute Assessment and Plan: Community-acquired pneumonia with high risk for MDR As above (3) IV drug user: Code(s): F19.90 - Other psychoactive substance use, unspecified, uncomplicated Status: Acute Assessment and Plan: Urine drug screen was positive for methamphetamines and cannabinoids Recent methamphetamine use since meth in the urine is detected up until 3-5 days after the last use/administration Patient was counseled and encouraged to quit drug use (4) Tobacco use: Code(s): Z72.0 - Tobacco use Status: Acute Assessment and Plan: Nicotine patch Counseled patient on cessation of tobacco use Plan DVT prophylaxis: Lovenox Code Status - Full Code. He is and does not have any biological children. He request that his friend Aline be considered healthcare power workers compensation defense attorney if he is unable to make decisions on his behalf. Subjective Date/time seen: 04/28/25 11:48 Interval history: 44yo male with history of IV methamphetamine use, current smoker presents to the ED on 04/25/25 with complaints of 5 day history of cough and fever. Patient feels better today. Eating better. Cough is nonproductive. Shortness of breath is better. Walking to the bathroom. Exam Narrative: AF 98.6 113/78 80 16 97% ra Gen - NARD neck -right lateral neck dressing is clean, dry intact Chest -coarse breath sounds bilaterally left greater than right. no egophony. CV - RRR. S1-S2 Abd - soft, NT, ND Ext - no pedal edema. 2+ DP pulses bilaterally. Neuro - Alert and appropriate. Skin - warm and dry Psych - nml mood and affect. Objective Data Vital Signs Vital Signs: Vital Signs - 24 hr 04/27/25 12:00 04/27/25 12:00 04/27/25 12:00 Temperature 98.2 F Pulse Rate 96 73 Respiratory Rate 24 H Blood Pressure 122/78 122/78 Pulse Oximetry 100 100 Oxygen Delivery Room Air 04/27/25 12:00 04/27/25 13:00 04/27/25 14:00 Temperature 98.2 F Pulse Rate 70 88 78 Respiratory Rate 18 17 Blood Pressure 109/77 115/70 Pulse Oximetry 96 99 Oxygen Delivery 04/27/25 14:00 04/27/25 15:00 04/27/25 16:00 Temperature Pulse Rate 90 92 Respiratory Rate 26 H Blood Pressure 97/72 L Pulse Oximetry 93 Oxygen Delivery Room Air 04/27/25 16:00 04/27/25 16:00 04/27/25 17:00 Temperature 98.3 F 98.3 F Pulse Rate 87 91 98 Respiratory Rate 20 21 H Blood Pressure 111/68 117/76 Pulse Oximetry 96 99 Oxygen Delivery 04/27/25 18:00 04/27/25 18:00 04/27/25 19:00 Temperature 98.3 F 98.6 F Pulse Rate 94 94 95 Respiratory Rate 28 H 16 Blood Pressure 117/82 124/79 Pulse Oximetry 96 95 Oxygen Delivery 04/27/25 20:00 04/28/25 04:23 04/28/25 08:00 Temperature 98.6 F Pulse Rate 80 Respiratory Rate 16 Blood Pressure 113/78 Pulse Oximetry 95 97 Oxygen Delivery Room Air Room Air Intake/Output Intake/Output: Intake & Output 04/25/25 04/26/25 04/27/25 04/28/25 23:59 23:59 23:59 23:59 Intake Total 4086.5 5221.2 3020 850 Output Total 1050 1800 3225 900 Balance 3036.5 3421.2 -205 -50 Meds/Results Medications: Active Medications Generic Name Dose Route Start Last Admin Trade Name Freq PRN Reason Stop Dose Admin Acetaminophen 650 mg 04/25/25 13:44 04/28/25 00:25 Acetaminophen 325 Mg Tablet PO 650 mg Q4H PRN Administration Mild Pain (1-3) or Fever Hydrocodone Bitart/Acetaminophen 1 tab 04/25/25 13:44 04/28/25 09:05 Hydrocodone/Acetaminophen (*Crx) 5-325 Mg Tablet PO 1 tab Q4H PRN Administration Pain Rated 4-6 Benzocaine 1 lozenge 04/25/25 17:27 04/28/25 09:01 Benzocaine/Menthol (*Bkc) 18 Ea Lozenge PO 1 lozenge PRN PRN Administration Sore Throat Benzonatate 200 mg 04/27/25 14:00 04/28/25 05:25 Benzonatate 100 Mg Capsule PO 200 mg Q8HR NUNU Administration Calcium Carbonate 200 mg 04/26/25 10:34 04/26/25 10:41 Calcium Carbonate (Tums) 500 Mg (200 Mg Elemental) PO 200 mg Q6H PRN Administration Indigestion Enoxaparin Sodium 40 mg 04/26/25 09:00 04/28/25 09:01 Enoxaparin 40 Mg/0.4 Ml Syringe SUB-Q 40 mg DAILY NUNU Administration Guaifenesin/Dextromethorphan 1 tab 04/25/25 17:20 04/28/25 09:01 Guaifenesin 600 Mg/Dextromethorphan 30 Mg Sr Tab 12 Hr PO 1 tab Q12HR NUNU Administration Azithromycin 500 mg/ Sodium 250 mls @ 250 mls/hr 04/26/25 14:00 04/27/25 17:21 Chloride IVPB 04/29/25 14:59 Infused Q24H NUNU Infusion Cefepime HCl 2 gm/ Sodium 50 mls @ 100 mls/hr 04/26/25 14:00 04/28/25 05:56 Chloride IVPB Infused Q8HR NUNU Infusion Nicotine 1 patch 04/26/25 16:50 04/28/25 09:01 Nicotine (*Pbkc) 14 Mg Patch TRANSDERM 1 patch DAILY NUNU Administration Ondansetron HCl 4 mg 04/25/25 13:44 04/27/25 13:25 Ondansetron Inj 4 Mg/2 Ml Vial IV PUSH 4 mg Q4H PRN Administration Nausea Pantoprazole Sodium 40 mg 04/26/25 09:00 04/28/25 09:01 Pantoprazole 40 Mg Tablet PO 40 mg QAM NUNU Administration Perflutren Lipid Microsphere 0 ml 04/26/25 07:42 Perflutren Lipid Microspheres 1.5 Ml Vial Diluted To 10 Ml Total Volume IV PUSH 04/29/25 07:42 ONCE PRN adequate visualization Protocol Sodium Chloride 20 ml 04/25/25 13:18 Central Line Flush IV PUSH PRN PRN after blood draws Radiology Results: ITS Impressions Chest CT 04/25/25 14:41 IMPRESSION: 1. No etiology identified to explain the patient's symptoms. Follow up suggested if symptoms persist. ADDENDUM: 04/25/25 5207 The initial report is in error signed off prematurely. The soft tissues are unremarkable. There are no thyroid nodules. There are enlarged lymph nodes in the mediastinum the largest in the right paratracheal space 1.5 x 1.6 cm. There is no cardiomegaly or pericardial effusion. There is no aneurysm identified. No thickening of the esophagus. No acute process within the visualized abdomen. There is a small simple appearing left pleural effusion. No tracheomalacia. No bronchiectasis. Large left upper lobe infiltrate. Minimal emphysematous changes. No significant pulmonary fibrotic changes. No sclerotic or lytic lesions. No acute fractures are identified. IMPRESSION: Large left upper lobe bronchopneumonia with reactive mediastinal lymphadenopathy. Follow-up is recommended to assess. Chest X-Ray 04/27/25 08:06 IMPRESSION: 1. Persistent left and developing right pneumonia. Labs Labs: Laboratory Results - last 24 hr 04/28/25 04:43 WBC 10.3 H RBC 4.09 L Hgb 11.0 L Hct 34.2 L MCV 83.6 MCH 26.9 MCHC 32.2 RDW 14.1 Plt Count 313 MPV 9.1 Immature Gran % (Auto) 9.0 H Neut % (Auto) 63.3 Lymph % (Auto) 17.0 L [place] % (Auto) 7.6 Eos % (Auto) 2.7 Baso % (Auto) 0.4 Lymph # (Auto) 1.75 [place] # (Auto) 0.8 H Eos # (Auto) 0.3 Baso # (Auto) 0.0 Abs Immat Gran (auto) 0.92 H Absolute Neuts (auto) 6.5 Absolute Nucleated RBC 0.000 Nucleated RBC % 0.0 Sodium 135 L Potassium 4.0 Chloride 103 Carbon Dioxide 29 Anion Gap 3 L BUN 12 Creatinine 0.76 Estim Creat Clear Calc 109 Estimated GFR > 60 Glucose 103 Calcium 7.9 L Phosphorus 5.6 H Magnesium 1.9 Total Bilirubin 0.1 L AST 26 ALT 17 Alkaline Phosphatase 69 Total Protein 5.6 L Albumin 2.6 L
[2025-04-28 14:00] VITALS: BP 114/77; PULSE 87; RESP 18; TEMP 36.9; O2SAT 98
[2025-04-28] MEDS: AZITHROMYCIN IV 500 MG in SODIUM CHLORIDE 0.9% IV 250 ML IVPB (14:23)
[2025-04-28 22:00] VITALS: BP 116/81; PULSE 95; RESP 16; TEMP 37.1; O2SAT 93
[2025-04-29 05:19] VITALS: BP 112/79; PULSE 88; RESP 16; TEMP 36.4; O2SAT 97
[2025-04-29 05:26] LABS: Hematocrit 38.1 % (42.0-52.0); Hemoglobin 12.2 g/dL (14.0-18.0); Immature Granulocyte Percent A 6.3 % (0-0.5); Lymphocytes Absolute Auto 1.70 K/mm3 (0.9-3.2); Mean Corpuscular HGB Conc 32.0 g/dl (32-36); Mean Corpuscular Hemoglobin 26.8 pg (26-34); Mean Corpuscular Volume 83.6 fl (80-100); Nucleated Red Blood Cells Absolute Auto 0.000 K/mm3 (0.0-0.012); Nucleated Red Blood Cells Perc 0.0 % (0.0-0.2); Platelet Count Result 379 k/mm3 (150-375); Red Blood Count 4.56 M/mm3 (4.6-6.20); White Blood Count 14.4 K/mm3 (4.5-10.0)
[2025-04-29] MEDS: BENZONATATE 100 MG CAPSULE 200 MG PO ×3 (05:30→21:02)
[2025-04-29] MEDS: CEFEPIME 2 GM in SODIUM CHLORIDE 0.9% IV 50 ML 100 ML IVPB ×3 (05:30→21:02)
[2025-04-29 05:53] LABS: Alanine Aminotransferase 30 U/L (6-50); Albumin Level 2.9 g/dL (3.5-5.1); Alkaline Phosphatase 88 U/L (38-126); Anion Gap 3 mmol/L (4-12); Aspartate Amino Transferase 41 U/L (17-59); Bilirubin,Total 0.3 mg/dL (0.2-1.3); Blood Urea Nitrogen 13 mg/dL (9-20); Calcium 8.3 mg/dL (8.4-10.2); Carbon Dioxide 31 mmol/L (22-30); Chloride 101 mmol/L (98-107); Estimated CRCL calculation 110 ml/min; Estimated Glomerular Filt Rate > 60; Glucose 108 mg/dL (65-110); Magnesium 2.2 mg/dL (1.6-2.3); Potassium 4.6 mmol/L (3.4-5.0); Sodium 135 mmol/L (137-145); Total Protein 6.3 g/dL (6.3-8.2)
[2025-04-29] MEDS: PANTOPRAZOLE 40 MG TABLET PO (08:46)
[2025-04-29] MEDS: NICOTINE (*PBKC) 14 MG PATCH 1 PATCH TRANSDERM (08:46)
[2025-04-29] MEDS: ENOXAPARIN 40 MG/0.4 ML SYRINGE SUB-Q (08:46)
[2025-04-29] MEDS: guaiFENesin 600 MG/DEXTROMETHORPHAN 30 MG SR TAB 12 HR 1 TAB PO ×2 (08:46→21:02)
[2025-04-29] MEDS: ACETAMINOPHEN 325 MG TABLET 650 MG PO (08:52)
--- NOTE | 2025-04-29 13:40 | PM.IMPN ---
Progress Note: A&P Assessment and Plan (1) Septic shock: Code(s): A41.9 - Sepsis, unspecified organism; R65.21 - Severe sepsis with septic shock Status: Acute Assessment and Plan: Septic shock secondary to community-acquired pneumonia in a person with IV drug use Chest CT showing large left upper lobe bronchopneumonia with reactive mediastinal lymphadenopathy. Patient received IV fluid bolus despite which he was hypotensive, requiring vasopressors Started on Levophed but able to be weaned off the evening of 04/26/2504/25: Blood cultures positive 04/25: Urine culture pending 04/25: Urine Legionella negative. Urine strep antigen positive. 04/28 BCx pending HIV and hepatitis screen are negative. Echo showing normal LV size and wall thickness, normal LV systolic and diastolic function, EF 60-65%, normal RV size and systolic function and mild biatrial enlargement. No significant valvular abnormality. Started on Azithromycin, Rocephin and Vanco. Rocephin changed to cefepime 04/26 given significant consolidation/infiltrates, high risk for MDR given homeless situation, IV drug abuse. MRSA screen is negative so vancomycin stopped 04/27 Chest x-ray 04/27 showing persistent left and developing right pneumonia. Remains on room air. WBC up again to 14K. No fevers. Follow up on culture results. Continue current IV abx. PEP therapy. Repeat BCx. (2) Community acquired pneumonia: Qualifiers: Laterality: left Lung location: upper lobe of lung Qualified Code(s): J18.9 - Pneumonia, unspecified organism Code(s): J18.9 - Pneumonia, unspecified organism Status: Acute Assessment and Plan: Community-acquired pneumonia with high risk for MDR As above (3) IV drug user: Code(s): F19.90 - Other psychoactive substance use, unspecified, uncomplicated Status: Acute Assessment and Plan: Urine drug screen was positive for methamphetamines and cannabinoids Recent methamphetamine use since meth in the urine is detected up until 3-5 days after the last use/administration Patient was counseled and encouraged to quit drug use (4) Tobacco use: Code(s): Z72.0 - Tobacco use Status: Acute Assessment and Plan: Nicotine patch Counseled patient on cessation of tobacco use Plan DVT prophylaxis: Lovenox Code Status - Full Code. He is and does not have any biological children. He request that his friend Aline be considered healthcare power civil rights attorney if he is unable to make decisions on his behalf. Subjective Date/time seen: 04/29/25 13:40 Interval history: 44yo male with history of IV methamphetamine use, current smoker presents to the ED on 04/25/25 with complaints of 5 day history of cough and fever. No complaints. Walking to the bathroom. Appetite is good. Cough has become more productive. Exam Narrative: AF 97.5 112/79 88 16 97% ra Gen - NARD Chest - Improved AE to the left lung field. nml RR CV - RRR. S1-S2 Abd - soft, NT, ND Ext - no pedal edema Neuro - Alert and appropriate. Skin - warm and dry Psych - nml mood and affect. Objective Data Vital Signs Vital Signs: Vital Signs - 24 hr 04/28/25 14:00 04/28/25 22:00 04/29/25 05:19 Temperature 98.4 F 98.8 F 97.5 F L Pulse Rate 87 95 88 Respiratory Rate 18 16 16 Blood Pressure 114/77 116/81 112/79 Pulse Oximetry 98 93 97 Oxygen Delivery 04/29/25 08:45 Temperature Pulse Rate Respiratory Rate Blood Pressure Pulse Oximetry Oxygen Delivery Room Air Intake/Output Intake/Output: Intake & Output 04/26/25 04/27/25 04/28/25 04/29/25 23:59 23:59 23:59 23:59 Intake Total 5221.2 3020 2050 530 Output Total 1800 3225 2700 1600 Balance 3421.2 -205 -650 -1070 Meds/Results Medications: Active Medications Generic Name Dose Route Start Last Admin Trade Name Freq PRN Reason Stop Dose Admin Acetaminophen 650 mg 04/25/25 13:44 04/29/25 08:52 Acetaminophen 325 Mg Tablet PO 650 mg Q4H PRN Administration Mild Pain (1-3) or Fever Hydrocodone Bitart/Acetaminophen 1 tab 04/25/25 13:44 04/28/25 09:05 Hydrocodone/Acetaminophen (*Crx) 5-325 Mg Tablet PO 1 tab Q4H PRN Administration Pain Rated 4-6 Albuterol/Ipratropium 3 ml 04/28/25 11:52 Ipratropium 0.5 Mg/Albuterol Sulfate 2.5 Mg (Base) Ampul.Neb 3 Ml INHALATION Q6HRT PRN Shortness Of Breath Benzocaine 1 lozenge 04/25/25 17:27 04/28/25 09:01 Benzocaine/Menthol (*Bkc) 18 Ea Lozenge PO 1 lozenge PRN PRN Administration Sore Throat Benzonatate 200 mg 04/27/25 14:00 04/29/25 05:30 Benzonatate 100 Mg Capsule PO 200 mg Q8HR NUNU Administration Calcium Carbonate 200 mg 04/26/25 10:34 04/26/25 10:41 Calcium Carbonate (Tums) 500 Mg (200 Mg Elemental) PO 200 mg Q6H PRN Administration Indigestion Enoxaparin Sodium 40 mg 04/26/25 09:00 04/29/25 08:46 Enoxaparin 40 Mg/0.4 Ml Syringe SUB-Q 40 mg DAILY NUNU Administration Guaifenesin/Dextromethorphan 1 tab 04/25/25 17:20 04/29/25 08:46 Guaifenesin 600 Mg/Dextromethorphan 30 Mg Sr Tab 12 Hr PO 1 tab Q12HR NUNU Administration Azithromycin 500 mg/ Sodium 250 mls @ 250 mls/hr 04/26/25 14:00 04/28/25 14:23 Chloride IVPB 04/29/25 14:59 250 mls/hr Q24H NUNU Administration Cefepime HCl 2 gm/ Sodium 50 mls @ 100 mls/hr 04/26/25 14:00 04/29/25 06:00 Chloride IVPB Infused Q8HR NUNU Infusion Nicotine 1 patch 04/26/25 16:50 04/29/25 08:46 Nicotine (*Pbkc) 14 Mg Patch TRANSDERM 1 patch DAILY NUNU Administration Ondansetron HCl 4 mg 04/25/25 13:44 04/27/25 13:25 Ondansetron Inj 4 Mg/2 Ml Vial IV PUSH 4 mg Q4H PRN Administration Nausea Pantoprazole Sodium 40 mg 04/26/25 09:00 04/29/25 08:46 Pantoprazole 40 Mg Tablet PO 40 mg QAM NUNU Administration Sodium Chloride 20 ml 04/25/25 13:18 Central Line Flush IV PUSH PRN PRN after blood draws Radiology Results: ITS Impressions Chest CT 04/25/25 14:41 IMPRESSION: 1. No etiology identified to explain the patient's symptoms. Follow up suggested if symptoms persist. ADDENDUM: 04/25/25 150 The initial report is in error signed off prematurely. The soft tissues are unremarkable. There are no thyroid nodules. There are enlarged lymph nodes in the mediastinum the largest in the right paratracheal space 1.5 x 1.6 cm. There is no cardiomegaly or pericardial effusion. There is no aneurysm identified. No thickening of the esophagus. No acute process within the visualized abdomen. There is a small simple appearing left pleural effusion. No tracheomalacia. No bronchiectasis. Large left upper lobe infiltrate. Minimal emphysematous changes. No significant pulmonary fibrotic changes. No sclerotic or lytic lesions. No acute fractures are identified. IMPRESSION: Large left upper lobe bronchopneumonia with reactive mediastinal lymphadenopathy. Follow-up is recommended to assess. Chest X-Ray 04/27/25 08:06 IMPRESSION: 1. Persistent left and developing right pneumonia. Labs Labs: Laboratory Results - last 24 hr 04/29/25 05:10 WBC 14.4 H RBC 4.56 L Hgb 12.2 L Hct 38.1 L MCV 83.6 MCH 26.8 MCHC 32.0 RDW 14.0 Plt Count 379 H MPV 8.8 Immature Gran % (Auto) 6.3 H Neut % (Auto) 74.4 H Lymph % (Auto) 11.8 L [place] % (Auto) 5.5 Eos % (Auto) 1.9 Baso % (Auto) 0.1 L Lymph # (Auto) 1.70 [place] # (Auto) 0.8 H Eos # (Auto) 0.3 Baso # (Auto) 0.0 Abs Immat Gran (auto) 0.91 H Absolute Neuts (auto) 10.7 H Absolute Nucleated RBC 0.000 Nucleated RBC % 0.0 Sodium 135 L Potassium 4.6 Chloride 101 Carbon Dioxide 31 H Anion Gap 3 L BUN 13 Creatinine 0.74 Estim Creat Clear Calc 110 Estimated GFR > 60 Glucose 108 Calcium 8.3 L Magnesium 2.2 Total Bilirubin 0.3 AST 41 ALT 30 Alkaline Phosphatase 88 Total Protein 6.3 Albumin 2.9 L
[2025-04-29 13:55] VITALS: BP 107/75; PULSE 87; RESP 18; TEMP 36.7; O2SAT 96
[2025-04-29] MEDS: AZITHROMYCIN IV 500 MG in SODIUM CHLORIDE 0.9% IV 250 ML IVPB (14:08)
[2025-04-29] MEDS: ALPRAZolam (*CRX) 0.25 MG TABLET PO (19:50)
--- NOTE | 2025-04-29 19:58 | PC.NURSE ---
Spoke with Dr. Reid regarding patients increased agitation and request for visitor to stay the night. Dr. Reid stated he did tell the patient he could have a friend stay with him for support. New order received for anxiolytic medication. Patient denies desire to leave AMA at this time. Updated on plan of care and in agreement with plan.
[2025-04-29 20:33] VITALS: BP 120/72; PULSE 94; RESP 19; TEMP 37.3; O2SAT 97
--- NOTE | 2025-04-29 20:38 | PC.NURSE ---
At start of writers shift patient came to senior front end developer stating Dr Reid had told him he could have someone stay over night. pumping supervisor, Edwina, and charge nurse, Tracy were made aware. pumping supervisor contacted Dr Reid by phone to confirm. Patient was very aggressive and stated if his visitor could not stay over night he would leave AMA and it would be on me as he pointed at internal communications writer. House supervsior confirmed with Dr Reid that he told patient he could have overnight visitor. Patient calmed down, but, later told internal communications writer that the visitor would not be coming tonight. Patient is restless and has tremors, but cooperative at this time.
[2025-04-30] MEDS: HYDROcodone/acetaminophen (*CRX) 5-325 MG TABLET 1 TAB PO (05:01)
[2025-04-30] MEDS: BENZONATATE 100 MG CAPSULE 200 MG PO ×3 (05:01→21:08)
[2025-04-30] MEDS: CEFEPIME 2 GM in SODIUM CHLORIDE 0.9% IV 50 ML 100 ML IVPB ×3 (05:02→21:08)
[2025-04-30 05:22] LABS: Hematocrit 34.6 % (42.0-52.0); Hemoglobin 11.0 g/dL (14.0-18.0); Immature Granulocyte Percent A 5.8 % (0-0.5); Lymphocytes Absolute Auto 1.66 K/mm3 (0.9-3.2); Mean Corpuscular HGB Conc 31.8 g/dl (32-36); Mean Corpuscular Hemoglobin 26.9 pg (26-34); Mean Corpuscular Volume 84.6 fl (80-100); Nucleated Red Blood Cells Absolute Auto 0.000 K/mm3 (0.0-0.012); Nucleated Red Blood Cells Perc 0.0 % (0.0-0.2); Platelet Count Result 409 k/mm3 (150-375); Red Blood Count 4.09 M/mm3 (4.6-6.20); White Blood Count 12.3 K/mm3 (4.5-10.0)
[2025-04-30 05:35] VITALS: BP 130/73; PULSE 77; RESP 16; TEMP 36.8; O2SAT 96
[2025-04-30 05:41] LABS: Anion Gap 4 mmol/L (4-12); Blood Urea Nitrogen 13 mg/dL (9-20); Calcium 8.0 mg/dL (8.4-10.2); Carbon Dioxide 28 mmol/L (22-30); Chloride 103 mmol/L (98-107); Estimated CRCL calculation 107 ml/min; Estimated Glomerular Filt Rate > 60; Glucose 104 mg/dL (65-110); Potassium 4.2 mmol/L (3.4-5.0); Sodium 135 mmol/L (137-145)
[2025-04-30] MEDS: PANTOPRAZOLE 40 MG TABLET PO (08:17)
[2025-04-30] MEDS: guaiFENesin 600 MG/DEXTROMETHORPHAN 30 MG SR TAB 12 HR 1 TAB PO ×2 (08:17→21:08)
[2025-04-30] MEDS: NICOTINE (*PBKC) 14 MG PATCH 1 PATCH TRANSDERM (08:18)
[2025-04-30] MEDS: ALPRAZolam (*CRX) 0.25 MG TABLET PO ×2 (08:26→21:17)
--- NOTE | 2025-04-30 12:28 | P.PNIM_ITS ---
Progress Note: A&P Assessment and Plan (1) Septic shock: Code(s): A41.9 - Sepsis, unspecified organism; R65.21 - Severe sepsis with septic shock Status: Acute Assessment and Plan: Septic shock secondary to community-acquired pneumonia in a person with IV drug use Chest CT showing large left upper lobe bronchopneumonia with reactive mediastinal lymphadenopathy. Patient received IV fluid bolus despite which he was hypotensive, requiring vasopressors Started on Levophed but able to be weaned off the evening of 04/26/2504/25: Blood cultures positive 04/25: Urine Legionella negative. Urine strep antigen positive. 04/28 BCx pending HIV and hepatitis screen are negative. Echo showing normal LV size and wall thickness, normal LV systolic and diastolic function, EF 60-65%, normal RV size and systolic function and mild biatrial enlargement. No significant valvular abnormality. Started on Azithromycin, Rocephin and Vanco. Rocephin changed to cefepime 04/26 given significant consolidation/infiltrates, high risk for MDR given homeless situation, IV drug abuse. MRSA screen is negative so vancomycin stopped 04/27. Completed 5 days of Azithro Chest x-ray 04/27 showing persistent left and developing right pneumonia. Remains on room air. WBC better at 12K. No fevers. Follow up on culture results. Continue current IV abx. Continue PEP therapy. Repeat CXR (2) Community acquired pneumonia: Qualifiers: Laterality: left Lung location: upper lobe of lung Qualified Code(s): J18.9 - Pneumonia, unspecified organism Code(s): J18.9 - Pneumonia, unspecified organism Status: Acute Assessment and Plan: Community-acquired pneumonia with high risk for MDR As above (3) IV drug user: Code(s): F19.90 - Other psychoactive substance use, unspecified, uncomplicated Status: Acute Assessment and Plan: Urine drug screen was positive for methamphetamines and cannabinoids Recent methamphetamine use since meth in the urine is detected up until 3-5 days after the last use/administration Patient was counseled and encouraged to quit drug use (4) Tobacco use: Code(s): Z72.0 - Tobacco use Status: Acute Assessment and Plan: Nicotine patch Counseled patient on cessation of tobacco use Plan DVT prophylaxis: Lovenox Code Status - Full Code. He is and does not have any biological children. He request that his friend Aline be considered healthcare power self sealing fuel tank builder if he is unable to make decisions on his behalf. Subjective Date/time seen: 04/30/25 12:28 Interval history: 44yo male with history of IV methamphetamine use, current smoker presents to the ED on 04/25/25 with complaints of 5 day history of cough and fever. Slept okay. SOme mild pleuritic left flank pain. Walking in halls. Showering. Eating okay. Exam Narrative: AF 98.3 130/73 77 16 96% ra Gen - NARD Chest - decreased BS in the left lower lung field. CV - RRR. S1-S2 Abd - soft, NT, ND Ext - no pedal edema Skin - warm and dry Psych - nml mood and affect. Objective Data Vital Signs Vital Signs: Vital Signs - 24 hr 04/29/25 13:55 04/29/25 20:33 04/30/25 05:35 Temperature 98.0 F 99.2 F 98.3 F Pulse Rate 87 94 77 Respiratory Rate 18 19 16 Blood Pressure 107/75 120/72 130/73 Pulse Oximetry 96 97 96 Oxygen Delivery 04/30/25 08:00 Temperature Pulse Rate Respiratory Rate Blood Pressure Pulse Oximetry Oxygen Delivery Room Air Intake/Output Intake/Output: Intake & Output 04/27/25 04/28/25 04/29/25 04/30/25 23:59 23:59 23:59 23:59 Intake Total 3020 2300 1870 410 Output Total 3225 0980 3900 700 Balance -205 -400 -640 -290 Meds/Results Medications: Active Medications Generic Name Dose Route Start Last Admin Trade Name Freq PRN Reason Stop Dose Admin Acetaminophen 650 mg 04/25/25 13:44 04/29/25 08:52 Acetaminophen 325 Mg Tablet PO 650 mg Q4H PRN Administration Mild Pain (1-3) or Fever Hydrocodone Bitart/Acetaminophen 1 tab 04/25/25 13:44 04/30/25 05:01 Hydrocodone/Acetaminophen (*Crx) 5-325 Mg Tablet PO 1 tab Q4H PRN Administration Pain Rated 4-6 Albuterol/Ipratropium 3 ml 04/28/25 11:52 Ipratropium 0.5 Mg/Albuterol Sulfate 2.5 Mg (Base) Ampul.Neb 3 Ml INHALATION Q6HRT PRN Shortness Of Breath Alprazolam 0.25 mg 04/29/25 19:38 04/30/25 08:26 Alprazolam (*Crx) 0.25 Mg Tablet PO 0.25 mg Q6H PRN Administration Anxiety Benzocaine 1 lozenge 04/25/25 17:27 04/28/25 09:01 Benzocaine/Menthol (*Bkc) 18 Ea Lozenge PO 1 lozenge PRN PRN Administration Sore Throat Benzonatate 200 mg 04/27/25 14:00 04/30/25 05:01 Benzonatate 100 Mg Capsule PO 200 mg Q8HR NUNU Administration Calcium Carbonate 200 mg 04/26/25 10:34 04/26/25 10:41 Calcium Carbonate (Tums) 500 Mg (200 Mg Elemental) PO 200 mg Q6H PRN Administration Indigestion Enoxaparin Sodium 40 mg 04/26/25 09:00 04/29/25 08:46 Enoxaparin 40 Mg/0.4 Ml Syringe SUB-Q 40 mg DAILY NUNU Administration Guaifenesin/Dextromethorphan 1 tab 04/25/25 17:20 04/30/25 08:17 Guaifenesin 600 Mg/Dextromethorphan 30 Mg Sr Tab 12 Hr PO 1 tab Q12HR NUNU Administration Cefepime HCl 2 gm/ Sodium 50 mls @ 100 mls/hr 04/26/25 14:00 04/30/25 05:32 Chloride IVPB Infused Q8HR NUNU Infusion Nicotine 1 patch 04/26/25 16:50 04/30/25 08:18 Nicotine (*Pbkc) 14 Mg Patch TRANSDERM 1 patch DAILY NUNU Administration Ondansetron HCl 4 mg 04/25/25 13:44 04/27/25 13:25 Ondansetron Inj 4 Mg/2 Ml Vial IV PUSH 4 mg Q4H PRN Administration Nausea Pantoprazole Sodium 40 mg 04/26/25 09:00 04/30/25 08:17 Pantoprazole 40 Mg Tablet PO 40 mg QAM NUNU Administration Sodium Chloride 20 ml 04/25/25 13:18 Central Line Flush IV PUSH PRN PRN after blood draws Radiology Results: ITS Impressions Chest CT 04/25/25 14:41 IMPRESSION: 1. No etiology identified to explain the patient's symptoms. Follow up suggested if symptoms persist. ADDENDUM: 04/25/25 1504 The initial report is in error signed off prematurely. The soft tissues are unremarkable. There are no thyroid nodules. There are enlarged lymph nodes in the mediastinum the largest in the right paratracheal space 1.5 x 1.6 cm. There is no cardiomegaly or pericardial effusion. There is no aneurysm identified. No thickening of the esophagus. No acute process within the visualized abdomen. There is a small simple appearing left pleural effusion. No tracheomalacia. No bronchiectasis. Large left upper lobe infiltrate. Minimal emphysematous changes. No significant pulmonary fibrotic changes. No sclerotic or lytic lesions. No acute fractures are identified. IMPRESSION: Large left upper lobe bronchopneumonia with reactive mediastinal lymphadenopathy. Follow-up is recommended to assess. Chest X-Ray 04/27/25 08:06 IMPRESSION: 1. Persistent left and developing right pneumonia. Labs Labs: Laboratory Results - last 24 hr 04/30/25 04:54 WBC 12.3 H RBC 4.09 L Hgb 11.0 L Hct 34.6 L MCV 84.6 MCH 26.9 MCHC 31.8 L RDW 14.3 Plt Count 409 H MPV 8.7 Immature Gran % (Auto) 5.8 H Neut % (Auto) 71.8 Lymph % (Auto) 13.5 L [place] % (Auto) 6.6 Eos % (Auto) 2.0 Baso % (Auto) 0.3 Lymph # (Auto) 1.66 [place] # (Auto) 0.8 H Eos # (Auto) 0.3 Baso # (Auto) 0.0 Abs Immat Gran (auto) 0.71 H Absolute Neuts (auto) 8.8 H Absolute Nucleated RBC 0.000 Nucleated RBC % 0.0 Sodium 135 L Potassium 4.2 Chloride 103 Carbon Dioxide 28 Anion Gap 4 BUN 13 Creatinine 0.75 Estim Creat Clear Calc 107 Estimated GFR > 60 Glucose 104 Calcium 8.0 L
[2025-04-30 14:00] VITALS: BP 103/67; PULSE 101; RESP 18; TEMP 36.7; O2SAT 95
[2025-04-30 21:00] VITALS: BP 108/77; PULSE 91; RESP 16; TEMP 36.6; O2SAT 96
[2025-05-01] MEDS: CEFEPIME 2 GM in SODIUM CHLORIDE 0.9% IV 50 ML 100 ML IVPB ×3 (06:13→22:46)
[2025-05-01] MEDS: BENZONATATE 100 MG CAPSULE 200 MG PO ×2 (06:14→19:52)
[2025-05-01 06:22] VITALS: BP 107/71; PULSE 88; RESP 16; TEMP 37; O2SAT 99
[2025-05-01] MEDS: PANTOPRAZOLE 40 MG TABLET PO (08:21)
[2025-05-01] MEDS: guaiFENesin 600 MG/DEXTROMETHORPHAN 30 MG SR TAB 12 HR 1 TAB PO ×2 (08:21→19:55)
[2025-05-01] MEDS: NICOTINE (*PBKC) 14 MG PATCH 1 PATCH TRANSDERM (08:21)
--- NOTE | 2025-05-01 11:30 | PC.NURSE ---
Pt states he hit the vape last night and that was a bad idea. I informed him that there was no smoking inside the hospital. Pt verbalized understanding.
--- NOTE | 2025-05-01 13:09 | PM.IMPN ---
Progress Note: A&P Assessment and Plan (1) Septic shock: Code(s): A41.9 - Sepsis, unspecified organism; R65.21 - Severe sepsis with septic shock Status: Acute Assessment and Plan: Septic shock secondary to community-acquired pneumonia in a person with IV drug use Chest CT showing large left upper lobe bronchopneumonia with reactive mediastinal lymphadenopathy. Patient received IV fluid bolus despite which he was hypotensive, requiring vasopressors Started on Levophed but able to be weaned off the evening of 04/26/2504/25: Blood cultures positive 04/25: Urine Legionella negative. Urine strep antigen positive. 04/28 BCx pending HIV and hepatitis screen are negative. Echo showing normal LV size and wall thickness, normal LV systolic and diastolic function, EF 60-65%, normal RV size and systolic function and mild biatrial enlargement. No significant valvular abnormality. Started on Azithromycin, Rocephin and Vanco. Rocephin changed to cefepime 04/26 given significant consolidation/infiltrates, high risk for MDR given homeless situation, IV drug abuse. MRSA screen is negative so vancomycin stopped 04/27. Completed 5 days of Azithro Chest x-ray 04/30 showing bilateral infiltrates and small effusions and left upper lobe infiltrate. Remains on room air. WBC better at 12K yesterday. No fevers. Follow up on culture results. Continue current IV abx. Continue PEP therapy. (2) Community acquired pneumonia: Qualifiers: Laterality: left Lung location: upper lobe of lung Qualified Code(s): J18.9 - Pneumonia, unspecified organism Code(s): J18.9 - Pneumonia, unspecified organism Status: Acute Assessment and Plan: Community-acquired pneumonia with high risk for MDR As above (3) IV drug user: Code(s): F19.90 - Other psychoactive substance use, unspecified, uncomplicated Status: Acute Assessment and Plan: Urine drug screen was positive for methamphetamines and cannabinoids Recent methamphetamine use since meth in the urine is detected up until 3-5 days after the last use/administration Patient was counseled and encouraged to quit drug use (4) Tobacco use: Code(s): Z72.0 - Tobacco use Status: Acute Assessment and Plan: Nicotine patch Counseled patient on cessation of tobacco use Plan Depression - patient feeling depressed and asking to start anti-depressants. Etiology of depressed mood related to a relationship that has soured. DVT prophylaxis: Lovenox Code Status - Full Code. He is and does not have any biological children. He request that his friend Aline be considered healthcare power trademark attorney if he is unable to make decisions on his behalf. Subjective Date/time seen: 05/01/25 13:09 Interval history: 44yo male with history of IV methamphetamine use, current smoker presents to the ED on 04/25/25 with complaints of 5 day history of cough and fever. Slept well last night. Feels tired. Feels depressed and expresses willingness to start antidepressants. Still with left flank pleuritic pain Exam Narrative: AF 98.6 107/71 88 16 99% ra Gen - NARD Chest - clear anteriorly and in flanks CV - RRR. S1-S2 Abd - soft, NT, ND Ext - no pedal edema Skin - warm and dry Psych - nml mood and affect. Objective Data Vital Signs Vital Signs: Vital Signs - 24 hr 04/30/25 14:00 04/30/25 21:00 05/01/25 06:22 Temperature 98.1 F 98 F 98.6 F Pulse Rate 101 H 91 88 Respiratory Rate 18 16 16 Blood Pressure 103/67 108/77 107/71 Pulse Oximetry 95 96 99 Oxygen Delivery 05/01/25 08:00 Temperature Pulse Rate Respiratory Rate Blood Pressure Pulse Oximetry Oxygen Delivery Room Air Intake/Output Intake/Output: Intake & Output 04/28/25 04/29/25 04/30/25 05/01/25 23:59 23:59 23:59 23:59 Intake Total 2300 1870 2640 490 Output Total 2700 2510 1500 400 Balance -400 -640 1140 90 Meds/Results Medications: Active Medications Generic Name Dose Route Start Last Admin Trade Name Freq PRN Reason Stop Dose Admin Acetaminophen 650 mg 04/25/25 13:44 04/29/25 08:52 Acetaminophen 325 Mg Tablet PO 650 mg Q4H PRN Administration Mild Pain (1-3) or Fever Hydrocodone Bitart/Acetaminophen 1 tab 04/25/25 13:44 04/30/25 05:01 Hydrocodone/Acetaminophen (*Crx) 5-325 Mg Tablet PO 1 tab Q4H PRN Administration Pain Rated 4-6 Albuterol/Ipratropium 3 ml 04/28/25 11:52 Ipratropium 0.5 Mg/Albuterol Sulfate 2.5 Mg (Base) Ampul.Neb 3 Ml INHALATION Q6HRT PRN Shortness Of Breath Alprazolam 0.25 mg 04/29/25 19:38 04/30/25 21:17 Alprazolam (*Crx) 0.25 Mg Tablet PO 0.25 mg Q6H PRN Administration Anxiety Benzocaine 1 lozenge 04/25/25 17:27 04/28/25 09:01 Benzocaine/Menthol (*Bkc) 18 Ea Lozenge PO 1 lozenge PRN PRN Administration Sore Throat Benzonatate 200 mg 05/01/25 08:18 Benzonatate 100 Mg Capsule PO Q8HR PRN Cough Calcium Carbonate 200 mg 04/26/25 10:34 04/26/25 10:41 Calcium Carbonate (Tums) 500 Mg (200 Mg Elemental) PO 200 mg Q6H PRN Administration Indigestion Enoxaparin Sodium 40 mg 04/26/25 09:00 05/01/25 08:23 Enoxaparin 40 Mg/0.4 Ml Syringe SUB-Q Not Given DAILY NUNU Guaifenesin/Dextromethorphan 1 tab 04/25/25 17:20 05/01/25 08:21 Guaifenesin 600 Mg/Dextromethorphan 30 Mg Sr Tab 12 Hr PO 1 tab Q12HR NUNU Administration Cefepime HCl 2 gm/ Sodium 50 mls @ 100 mls/hr 04/26/25 14:00 05/01/25 06:13 Chloride IVPB 100 mls/hr Q8HR NUNU Administration Nicotine 1 patch 04/26/25 16:50 05/01/25 08:21 Nicotine (*Pbkc) 14 Mg Patch TRANSDERM 1 patch DAILY NUNU Administration Ondansetron HCl 4 mg 04/25/25 13:44 04/27/25 13:25 Ondansetron Inj 4 Mg/2 Ml Vial IV PUSH 4 mg Q4H PRN Administration Nausea Pantoprazole Sodium 40 mg 04/26/25 09:00 05/01/25 08:21 Pantoprazole 40 Mg Tablet PO 40 mg QAM NUNU Administration Sodium Chloride 20 ml 04/25/25 13:18 Central Line Flush IV PUSH PRN PRN after blood draws Radiology Results: ITS Impressions Chest CT 04/25/25 14:41 IMPRESSION: 1. No etiology identified to explain the patient's symptoms. Follow up suggested if symptoms persist. ADDENDUM: 04/25/25 1058 The initial report is in error signed off prematurely. The soft tissues are unremarkable. There are no thyroid nodules. There are enlarged lymph nodes in the mediastinum the largest in the right paratracheal space 1.5 x 1.6 cm. There is no cardiomegaly or pericardial effusion. There is no aneurysm identified. No thickening of the esophagus. No acute process within the visualized abdomen. There is a small simple appearing left pleural effusion. No tracheomalacia. No bronchiectasis. Large left upper lobe infiltrate. Minimal emphysematous changes. No significant pulmonary fibrotic changes. No sclerotic or lytic lesions. No acute fractures are identified. IMPRESSION: Large left upper lobe bronchopneumonia with reactive mediastinal lymphadenopathy. Follow-up is recommended to assess. Chest X-Ray 04/30/25 15:54 Impression: Bilateral pneumonia
[2025-05-01 14:00] VITALS: BP 105/69; PULSE 100; RESP 18; TEMP 37.9; O2SAT 96
[2025-05-01] MEDS: BENZOCAINE/MENTHOL (*BKC) 18 EA LOZENGE 1 LOZENGE PO (18:56)
[2025-05-01] MEDS: ALPRAZolam (*CRX) 0.25 MG TABLET PO (18:56)
[2025-05-01 19:53] VITALS: BP 116/63; PULSE 105; RESP 18; TEMP 37; O2SAT 96
[2025-05-02] MEDS: ALPRAZolam (*CRX) 0.25 MG TABLET PO (02:05)
[2025-05-02] MEDS: HYDROcodone/acetaminophen (*CRX) 5-325 MG TABLET 1 TAB PO (03:51)
[2025-05-02 04:03] VITALS: BP 110/72; PULSE 110; RESP 18; TEMP 37; O2SAT 97
[2025-05-02 05:01] LABS: Hematocrit 37.8 % (42.0-52.0); Hemoglobin 11.7 g/dL (14.0-18.0); Immature Granulocyte Percent A 4.7 % (0-0.5); Lymphocytes Absolute Auto 1.73 K/mm3 (0.9-3.2); Mean Corpuscular HGB Conc 31.0 g/dl (32-36); Mean Corpuscular Hemoglobin 26.7 pg (26-34); Mean Corpuscular Volume 86.3 fl (80-100); Nucleated Red Blood Cells Absolute Auto 0.000 K/mm3 (0.0-0.012); Nucleated Red Blood Cells Perc 0.0 % (0.0-0.2); Platelet Count Result 554 k/mm3 (150-375); Red Blood Count 4.38 M/mm3 (4.6-6.20); White Blood Count 18.6 K/mm3 (4.5-10.0)
[2025-05-02 05:38] LABS: Anion Gap 12 mmol/L (4-12); Blood Urea Nitrogen 19 mg/dL (9-20); Calcium 8.8 mg/dL (8.4-10.2); Carbon Dioxide 23 mmol/L (22-30); Chloride 102 mmol/L (98-107); Estimated CRCL calculation 93 ml/min; Estimated Glomerular Filt Rate > 60; Glucose 139 mg/dL (65-110); Potassium 4.0 mmol/L (3.4-5.0); Sodium 137 mmol/L (137-145)
[2025-05-02] MEDS: CEFEPIME 2 GM in SODIUM CHLORIDE 0.9% IV 50 ML 100 ML IVPB (05:58)
--- NOTE | 2025-05-03 06:41 | PC.NURSE ---
04/25 Blood cx growing Stept Pneumoniae which is susceptible to Levaquin. This is what was given to pt when he left. Dr. Reid aware of findings.
--- NOTE | 2025-05-05 08:36 | PC.NURSE ---
04/28 Blood cx show no growth.
--- NOTE | 2025-05-10 10:09 | P.DS_ITS ---
DS: Admitting Diagnosis Discharge Date 05/02/25 Admitting Diagnosis Cough and fever DS: Discharge Diagnosis Discharge Diagnosis (1) Septic shock: Code(s): A41.9 - Sepsis, unspecified organism; R65.21 - Severe sepsis with septic shock Status: Acute (2) Community acquired pneumonia: Qualifiers: Laterality: left Lung location: upper lobe of lung Qualified Code(s): J18.9 - Pneumonia, unspecified organism Code(s): J18.9 - Pneumonia, unspecified organism Status: Acute (3) IV drug user: Code(s): F19.90 - Other psychoactive substance use, unspecified, uncomplicated Status: Acute (4) Tobacco use: Code(s): Z72.0 - Tobacco use Status: Acute DS: Summary Hospital Course Reason for hospitalization: 44yo male with history of IV methamphetamine use, current smoker presents to the ED on 04/25/25 with complaints of 5 day history of cough and fever. Please see H&P for details. Hospital Course: The following issues were addressed during the hospital course: (1) Septic shock: Septic shock secondary to community-acquired pneumonia in a person with hx of IV drug use. Chest CT showing large left upper lobe bronchopneumonia with reactive mediastinal lymphadenopathy. Patient received IV fluid bolus but remained hypotensive requiring vasopressors. He was started on Levophed and had improvement: he was able to be weaned off the evening of 04/26/25. Blood cultures drawn on 04/25 were positive that ultimately grew Strep pneumoniae that was pansensitive (verified 05/02/25). Urine Legionella negative. Urine strep antigen positive. Repeat BCx on 04/28 were negative. HIV and hepatitis screen were negative. Echo showing normal LV size and wall thickness, normal LV systolic and diastolic function, EF 60-65%, normal RV size and systolic function and mild biatrial enlargement. No significant valvular abnormalities or vegetations. He was started on Azithromycin, Rocephin and Vanco. Rocephin changed to cefepime 04/26 given significant consolidation/infiltrates, high risk for MDR given homeless situation, and hx of IV drug abuse. MRSA screen was negative so vancomycin stopped 04/27. He completed 5 days of Azithromycin. Repeat Chest x-ray 04/30 showing bilateral infiltrates and small effusions and left upper lobe infiltrate. He remained on room air. WBC normalized but then climbed to 18K at the end of his hospitalization for unclear reasons. No fevers. (2) Community acquired pneumonia: Community-acquired pneumonia with high risk for MDR. As above. (3) IV drug user: Urine drug screen was positive for methamphetamines and cannabinoids. Recent methamphetamine use since meth in the urine is detected up until 3-5 days after the last use/administration. HIV and hepatitis screen were negative. Patient was counseled and encouraged to quit drug use. (4) Tobacco use: A nicotine patch was provided. He was counseled on cessation of tobacco use. (5) Depression: Patient was feeling depressed and asking to start anti-depressants. Etiology of depressed mood related to a relationship that has soured. He was started on an anti-depressant but not continued at discharge. Patient overall did well and was recovering well. His elevated WBC was of concern. I was called and informed patient was wanting to leave against medical advise. Patient had left before he could be seen and examined but he did receive counseling about the dangers of signing out against medical advise from nursing staff. BCx results were released later that day and Levaquin 750mg daily for 3 days was called in and nursing notified patient of this. Patient signed out against medical advise on 05/02/25. Time Spent with Patient Time attestation: Total time spent providing and/or coordinating discharge services: 20 minutes Time spent: Less than 30 minutes Exam Narrative: Exam from 05/01/25. Patient was not seen nor examined on the day he signed out AMA. AF 98.6 107/71 88 16 99% ra Gen - NARD Chest - clear anteriorly and in flanks CV - RRR. S1-S2 Abd - soft, NT, ND Ext - no pedal edema Skin - warm and dry Psych - nml mood and affect. Discharge Plan Discharge Consulting providers: Lazaro Campbell; Rosalba Lim; Josemanuel Boswell; Leticia Hill; Jalen Galvez; Geremias Crain; Leonel Peterson Patient Disposition: Left Against Medical Advice Patient Language: Guyanese Discharge Medications: New levofloxacin 750 mg tablet 750 mg PO DAILY Qty: 3 0RF No Action No Home Medications Date of admission: 04/26/25 08:15 Primary Care Provider: PHYSICIAN,LIBRARY CUSTOMER SERVICE CLERK Admitting Provider: Amarilys Godwin Attending physician on admission: Isak Reid Condition: Serious Hospitalist MIPS Heart Failure (Exclusion) Patient has history of Heart Transplant or Left Ventricular Assistive Device?: No IF YES, STOP HERE Heart Failure (Qualifier) Patient has current or prior documentation of LVEF less than or equal to 40%, or mod/servere depressed LVSF?: No IF NO, STOP HERE
== END 2025-05-02 08:15 | disposition left against medical advice (07) | DRG 720 ==
LOC: ANHED 11:52 → ANHICU 14:24 → ANH3MED 04-29 22:45 → ANHICU 05-03 09:24
PROVIDERS: Internal Medicine; Admitting Provider Internal Medicine; Emergency Provider Emergency Medicine; Visit Provider Internal Medicine
DX: A40.3 Sepsis due to Streptococcus pneumoniae (principal); J18.9 Pneumonia, unspecified organism; R65.20 Severe sepsis without septic shock; I95.9 Hypotension, unspecified; F19.90 Other psychoactive substance use, unspecified, uncomplicated; F17.210 Nicotine dependence, cigarettes, uncomplicated; F15.10 Other stimulant abuse, uncomplicated; Z59.00 Homelessness unspecified; F12.90 Cannabis use, unspecified, uncomplicated; J18.0 Bronchopneumonia, unspecified organism; F32.A Depression, unspecified
CPT/HCPCS: 36415; 36556; 71045; 71046; 71250; 80048; 80053; 80074; 80202; 80307; 81001; 83605; 83735; 84100; 85025; 85610; 85730; 86140; 86703; 86738; 87040; 87186; 87449; 87637; 87641; 87899; 93306; 96361; 96365; 96366; 96367; 96374; 99291; A9270; C1751; G0378; G0432; J0456; J0692; J0696; J1650; J2405; J3373; J7030; J7050; J7120